=== PATIENT | female | born 1935 | race Hispanic/Latino ===

== ENCOUNTER 2017-05-31 09:21 | Outpatient (CLI) | payer MEDICARE ==
[2017-05-31 10:16] LABS: #Eosinphils 0.4 thou/uL (0.0-0.7); #Lymphocytes 1.6 thou/uL (1.20-3.40); #Monocytes 0.5 thou/uL (0.11-0.59); #Neutrophils 5.2 thou/uL (1.40-6.50); %Basophils 0.5 % (0.0-1.0); %Eosinophils 5.1 % (0.0-10.0); %Lymphocytes 20.2 % (21.0-51.0); %Monocytes 6.5 % (0.0-10.0); %Neutrophils 67.7 % (42.0-75.0); Mean Corpuscular HGB CONC 32.5 g/dL (32.0-36.0); Mean Corpuscular Hemoglobin 28.2 pg (27.0-31.0); Mean Corpuscular Volume 86.9 fl (81.0-99.0); Mean Platelet Volume 8.1 fL (7.4-10.4); Platelet Count 207 thou/uL (130-400); RBC Distribution Width 12.5 % (11.5-14.5); Red Blood Cell (RBC) Count 4.25 mill/uL (4.20-5.40); White Blood Cell (WBC) Count 7.7 thou/uL (4.8-10.8)
[2017-05-31 10:20] LABS: Bilirubin Negative (Negative); Blood, Urine Small (Negative); Clarity CLEAR (Clear); Glucose, Urine (Dipstick) 250 mg/dL (Negative); Leukocyte Small (Negative); Nitrite Negative (Negative); Protein, Urine (Dipstick) 300 mg/dL (Neg-Trace); Specific Gravity, Urine 1.017 (1.002-1.036); Urobilinogen 0.2 mg/dL (0.2-1.0)
[2017-05-31 10:22] LABS: Bacteria/HPF None Seen HPF (None Seen); Hyaline Casts/LPF 0-3 HYALINE CAST LPF (0-3 Hyaline); Pathc Cast-AUWi Flag 0.27 (0-2.49); Squamous Epithelial 0-3 HPF (0-3); WBC/HPF 0-3 HPF (0-3)
[2017-05-31 10:29] LABS: Prothrombin Time 12.8 SEC (12.0-14.7)
[2017-05-31 10:45] LABS: Anion Gap 13 mmol/L (10-20); BUN (Urea Nitrogen) 29 mg/dL (9.8-20.1); Calc. Creatinine Clearance 0 mL/min (70-130); Calcium 8.7 mg/dL (7.8-10.44); Carbon Dioxide 28 mmol/L (23-31); Chloride 102 mmol/L (98-107); Estimated GFR-MDRD 27; Glucose 186 mg/dL (83-110); Potassium 3.9 mmol/L (3.5-5.1); Sodium 139 mmol/L (136-145)
== END 2017-05-31 09:22 | disposition home or self-care (01) ==
LOC: LABBT 09:21
PROVIDERS: ATTEND Orthopaedic Surgery Hand Surgery
DX: Z01.812 Encounter for preprocedural laboratory examination (principal); G56.01 Carpal tunnel syndrome, right upper limb
CPT/HCPCS: 80048; 81001; 85025; 85610

== ENCOUNTER 2017-06-11 05:41 | Day surgery (SDC) | payer MEDICARE ==
[2017-05-31 10:01] VITALS: BMI 25.6
[2017-06-11] MEDS ORDERED: Propofol 500 MG/50 ML VIAL ONE (06:10)
[2017-06-11] MEDS ORDERED: Midazolam HCl 2 mg/2 ml Vial ONE (06:10)
[2017-06-11] MEDS ORDERED: Fentanyl 100 MCG/2 ML VIAL ONE (06:10)
[2017-06-11] MEDS ORDERED: Bupivacaine PF 0.5% 30 ML VIAL ONE (06:39)
[2017-06-11] MEDS ORDERED: Bacitracin Zinc Ointment 30 gm TUBE ONE (06:39)
[2017-06-11] MEDS ORDERED: Betamet Acet/Betamet Na Ph 30 MG/5 ML VIAL ONE (06:39)
[2017-06-11] MEDS ORDERED: CEFAZOLIN/Water 2 GM/20 ML SYRINGE ONE (06:45)
--- NOTE | 2017-06-11 10:29 | OP ---
DATE OF PROCEDURE: 06/11/2017 PREOPERATIVE DIAGNOSIS: Right carpal tunnel syndrome. POSTOPERATIVE DIAGNOSES: Right carpal tunnel syndrome with about 1.5 cm area of stippling valgus for mation of the median nerve in the center carpal canal and no tenosynovitis. She had marked thenar at [facility]. PROCEDURE: 1. Carpal tunnel release. 2. Injection of Celestone, 3 mL into the carpal canal and then proceed via drip technique. SURGEON: Dr. David Vidal INDICATION: The patient with atrophy lancinating pain which she describes as sleepiness which is not resolved with conservative treatment to include bracing and positive physical exam and electrodiagno stic testing. She has stage 3 Duque changes with severe atrophy. ANESTHESIA: Conscious sedation with a 12 mL 0.5% Marcaine block in the field of surgery. SPECIMEN: None. ESTIMATED BLOOD LOSS: Less than 5 mL. TOURNIQUET TIME: 14 minutes. DESCRIPTION OF PROCEDURE: After successful timeout was accomplished and prepping and draping, we the n outlined the incision and injected along this area with 12 mL 0.5% Marcaine. We waited 5 minutes f or this to take effect. Testing the patient it did not cause a problem so then we exsanguinated the limb and inflated the tourniquet to 250 mmHg pressure. We then made an incision outlined as far distal as Granados's cardinal line 4 proximal and 6 mm distal to the volar wrist flexion crease in line with the ring finger from medial to lateral. Carried this incision through skin, subcutaneous tissue, identified the center transcarpal ligament. From here, w ith self-retaining retractor and help of the assistant teacher, we were able to visualize the distal one half of the transverse carpal ligament, released it with a [place] blade in combination with tenotomy scis sors. We saw the motor branch was intact, had no separate compression. It was a type 1 takeoff. Then from here proximally using combination of [place] blade and tenotomy scissors to release the very thick transverse carpal ligament here where it was tightest all the way into the volar fascia of the forearm. We inspected the median nerve and saw the 1.5 cm stippling with hourglass formation in the middle portion of this area, no tenosynovitis was seen so no tenosynovectomy was needed. We placed 3 mL of Celestone along the nerve course in a drip technique, deflated tourniquet, hemostas is obtained. Closed the wound with interrupted 4-0 nylon simple pattern. The patient had a bulky dr essing applied was given another 6 mL 0.5% Marcaine. A subcutaneous block in the field of the proced ure and then left the operating room without evidence of anesthetic or operative complication.
[2017-06-11] MEDS ORDERED: ePHEDrine/0.9% NaCl/PF SYRINGE 50 mg/10 ml ONE (15:56)
[2017-06-11] MEDS ORDERED: Lidocaine 1% PF 5 ML VIAL ONE (15:56)
[2017-06-11] MEDS ORDERED: Propofol 200 MG/20 ML VIAL ONE (15:56)
== END 2017-06-11 09:48 | disposition home or self-care (01) ==
LOC: SDC 05:41
PROVIDERS: ATTEND Orthopaedic Surgery Hand Surgery
PROC: 01N50ZZ Release Median Nerve, Open Approach (ICD-10-PCS; principal; 2017-06-11)
DX: G56.01 Carpal tunnel syndrome, right upper limb (principal); I25.10 Atherosclerotic heart disease of native coronary artery without angina pectoris; Z88.5 Allergy status to narcotic agent; Z95.1 Presence of aortocoronary bypass graft; Z90.49 Acquired absence of other specified parts of digestive tract; Z90.710 Acquired absence of both cervix and uterus; Z98.42 Cataract extraction status, left eye; Z98.41 Cataract extraction status, right eye; Z96.1 Presence of intraocular lens
CPT/HCPCS: 36416; J0702; J2001; J2250; J2704; J3010; S0020

== ENCOUNTER 2017-11-25 02:14 | Observation (INO) | payer MEDICARE ==
[2017-11-25 02:52] LABS: #Eosinphils 0.6 thou/uL (0.0-0.7); #Lymphocytes 2.2 thou/uL (1.20-3.40); #Monocytes 0.7 thou/uL (0.11-0.59); #Neutrophils 4.9 thou/uL (1.40-6.50); %Basophils 0.4 % (0.0-1.0); %Eosinophils 6.7 % (0.0-10.0); %Lymphocytes 26.4 % (21.0-51.0); %Monocytes 8.7 % (0.0-10.0); %Neutrophils 57.9 % (42.0-75.0); Hemoglobin 12.1 g/dL (12.0-16.0); Mean Corpuscular HGB CONC 34.5 g/dL (32.0-36.0); Mean Corpuscular Hemoglobin 29.4 pg (27.0-31.0); Mean Corpuscular Volume 85.2 fL (78.0-98.0); Mean Platelet Volume 7.3 fL (7.4-10.4); Platelet Count 183 thou/uL (130-400); RBC Distribution Width 12.3 % (11.5-14.5); Red Blood Cell (RBC) Count 4.12 mill/uL (4.20-5.40); White Blood Cell (WBC) Count 8.4 thou/uL (4.8-10.8)
[2017-11-25 02:57] LABS: INR-International Normal Ratio 0.9; Prothrombin Time 11.9 SEC (12.0-14.7)
[2017-11-25 02:58] LABS: PTT 31.7 SEC (22.9-36.1)
[2017-11-25 03:08] LABS: ALT (SGPT) 11 U/L (8-55); AST (SGOT) 18 U/L (5-34); Alkaline Phosphatase 156 U/L (40-150); Anion Gap 13 mmol/L (10-20); BUN (Urea Nitrogen) 31 mg/dL (9.8-20.1); Bilirubin, Total 0.3 mg/dL (0.2-1.2); Calc. Creatinine Clearance 0 mL/min (70-130); Calcium 9.2 mg/dL (7.8-10.44); Carbon Dioxide 26 mmol/L (23-31); Chloride 104 mmol/L (98-107); Estimated GFR-MDRD 26; Glucose 70 mg/dL (83-110); Potassium 3.3 mmol/L (3.5-5.1); Sodium 140 mmol/L (136-145)
[2017-11-25 03:12] LABS: CKMB 2.5 ng/mL (0-6.6); Troponin I 0.015 ng/mL (< 0.028)
[2017-11-25] MEDS ORDERED: Nitroglycerin 2% Ointment 1 INCH/1 GM Packet ONE (03:42)
--- NOTE | 2017-11-25 03:57 | PDOC.FPRHP ---
- History of Present Illness History of Present Illness: Pt awoke at 0100 this morning with L sided parethesias and weakness. She had difficulty making it down the bellamy to the restroom. All of her symptoms have since resolved. She reports a history of TIAs. She denies any other symptoms including: chest pain, palpitations, changes in visions, headache, or focal weakness. Family members report she is at baseline mental state. ED Course: Upon presentation to the ER, symptoms had resolved. CT head, CBC, CMP, UA, and EKG were completed and WNL. - Allergies/Adverse Reactions Allergies Allergy/AdvReac Type Severity Reaction Status Date / Time codeine [Codeine] AdvReac Mild Verified 05/31/17 10:00 - Home Medications Medication Instructions Recorded Confirmed Type Esomeprazole Magnesium [NexIUM] 40 mg PO DAILY 07/16/15 11/25/17 History Ferrous Sulfate 325 mg PO QAM 07/16/15 11/25/17 History Losartan Potassium 100 mg PO HS 07/16/15 11/25/17 History Oxybutynin [Ditropan] 5 mg PO QAM 07/16/15 11/25/17 History Aspirin [Ecotrin Low Strength] 325 mg PO QAM 09/01/15 11/25/17 History Atorvastatin Calcium [Lipitor] 80 mg PO HS #30 tab 07/31/16 11/25/17 Rx Amlodipine [Norvasc] 10 mg PO DAILY 05/31/17 11/25/17 History Cyanocobalamin (Vitamin B-12) 1,000 mcg PO QAM 05/31/17 11/25/17 History [Vitamin B-12] Furosemide [Lasix] 20 mg PO QAM 05/31/17 11/25/17 History Insulin Glargine,Hum.Rec.Anlog 12 unit SQ HS 05/31/17 11/25/17 History [Lantus Solostar] - History PMHx:T2DM, CAD, CKD3, HTN PSHx: Quadruple bypass, hysterectomy FHx:none Social:none - Review of Systems General: denies: fever/chills, fatigue Eyes: denies: eye pain, vision changes Respiratory: denies: shortness of breath, exercise intolerance Cardiovascular: denies: chest pain, palpitation, edema Gastrointestinal: denies: diarrhea, constipation, abdominal pain Genitourinary: denies: incontinence, dysuria, polyuria Skin: denies: rashes, lesions Musculoskeletal: denies: pain, tenderness Neurological: reports: numbness (all symptoms have resolved), weakness. denies : syncope - Vital signs BP: [168/59] HR: [62] RR: [17] Tmax: [98.1] Pox: [100]% on [RA] Wt: [] - Physical Exam Constitutional: NAD, awake, alert and oriented HEENT: normocephalic and atraumatic, PERRLA Neck: trachea midline, no JVD Chest: no-tender to palpation, no lesions Heart: RRR, normal S1/S2, no murmurs/rubs/gallops, pulses present, no edema Lungs: CTAB, no respiratory distress, good air movement, no rales/rhonchi, no wheezing Abdomen: soft, non-tender, bowel sounds present Musculoskeletal: normal structure, normal tone, ROM grossly normal Neurological: no focal deficit, CN II-XII intact, normal sensation Skin: no rash/lesions, no jaundice Heme/Lymphatic: no unusual bruising or bleeding, no purpura, no petechia FMR H&P: Results - Labs Result Diagrams: 11/25/17 02:36 11/25/17 02:36 Lab results: WBC 8.4 thou/uL (4.8-10.8) 11/25/17 02:36 Hgb 12.1 g/dL (12.0-16.0) 11/25/17 02:36 Hct 35.1 % (36.0-47.0) L 11/25/17 02:36 MCV 85.2 fL (78.0-98.0) 11/25/17 02:36 Plt Count 183 thou/uL (130-400) 11/25/17 02:36 Neutrophils % 57.9 % (42.0-75.0) 11/25/17 02:36 Sodium 140 mmol/L (136-145) 11/25/17 02:36 Potassium 3.3 mmol/L (3.5-5.1) L 11/25/17 02:36 Chloride 104 mmol/L (98-107) 11/25/17 02:36 Carbon Dioxide 26 mmol/L (23-31) 11/25/17 02:36 BUN 31 mg/dL (9.8-20.1) H 11/25/17 02:36 Creatinine 1.87 mg/dL (0.6-1.1) H 11/25/17 02:36 Glucose 70 mg/dL (83-110) L 11/25/17 02:36 Calcium 9.2 mg/dL (7.8-10.44) 11/25/17 02:36 Total Bilirubin 0.3 mg/dL (0.2-1.2) 11/25/17 02:36 AST 18 U/L (5-34) 11/25/17 02:36 ALT 11 U/L (8-55) 11/25/17 02:36 Alkaline Phosphatase 156 U/L (40-150) H 11/25/17 02:36 CK-MB (CK-2) 2.5 ng/mL (0-6.6) 11/25/17 02:36 Serum Total Protein 7.0 g/dL (6.0-8.3) 11/25/17 02:36 Albumin 4.0 g/dL (3.4-4.8) 11/25/17 02:36 FMR H&P: A/P - Problem List (1) TIA (transient ischemic attack) Current Visit: Yes Status: Acute (2) Hypokalemia Current Visit: Yes Status: Acute Code(s): E87.6 - HYPOKALEMIA (3) Chronic kidney disease (CKD) Current Visit: Yes Status: Chronic Code(s): N18.9 - CHRONIC KIDNEY DISEASE, UNSPECIFIED Qualifiers: Chronic kidney disease stage: stage 3 (moderate) Qualified Code(s): N18.3 - Chronic kidney disease, stage 3 (moderate) (4) DM2 (diabetes mellitus, type 2) Current Visit: Yes Status: Chronic Qualifiers: Diabetes mellitus terminal gauger insulin use: without terminal gauger use Diabetes mellitus complication status: with hyperglycemia Qualified Code(s): E11.65 - Type 2 diabetes mellitus with hyperglycemia - Plan 1. Possible TIA - CT, EKG, Coag WNL - will order carotid doppler, no CTA due to chronic kidney disease - Stroke team consult - Neurology consult - Monitor in telemetry observation 2. Hypokalemia - potassium mildly low at 3.3 - will oral supplement and continue to monitor 3. HUEY on CKD - IVF on at a low rate - continue to monitor lab values 3. DMII - hypoglycemic on admission - administer mild sliding scale insulin and monitor FMR H&P: Upper Level - Pertinent history 82 y/o F w/ PMHx of CAD, hx of TIA, HTN, and IDDM presents for evaluation of left sided numbness and tingling that she first noticed when she woke up around 0130 this AM. Last normal prior to going to bed around 2230 last night. Pt states she got up to use the restroom and noticed the aforementioned sxs. Numbness and tingling from left hip downward and from left elbow down into hand. However, pt reports that her sxs have completely resolved at time of interview. Sxs are not similar to her prior episodes of TIA in the past. - Pertinent findings BP 168/59 HR 62 RR 17 O2 sat 100% RA Temp 98.1 CT Brain WO NAD PE: GEN: NAD, resting comfortably PULM: CTA-B/l, no wheezes or rales CARD: RRR, no mumur or gallops GI: Soft, non-ttp, BSx4 NEURO: CN 2-12 intact b/l, 5/5 strength throughout, no focal deficits. Sensory exam intact UE and LE b/l - Plan Date/Time: 11/25/17 0354 I, B. Sarthak Neumann MD, have evaluated this patient and agree with findings/plan as outlined by planning intern resident. Pertinent changes/additions are listed here. 82 y/o F w/: 1. Transient Ischemic Attack - No evidence of hemorrhage on CT non-con - Unable to obtain CTA in ER 2/2 renal function w/ GFR of 26. Will obtain carotid U/S - Admit Stroke/Obs - Allow permissive HTN for 24 hrs (<220/120) - Will obtain ECHO to further eval cardiac etiologies - Cont. w/ high intensity statin once taking PO - NPO pending clearance by speech to prevent possible aspiration - Consult Neuro in AM for further eval - Cont. w/ ASA - Consult PT/OT for eval 2. HUEY on CKD 3 - Baseline GFR around 35 per clinic records - Will give gentle IVF and repeat BMP to monitor for resolution 3. Hypokalemia - Will replace w/ 40 mEq PO 4. Elevated Alk Phos - Likely insignificant and due to statistical variation w/ mild elevation noted - No concern for primary biliary cirrhosis at this time w/ normal values seen on prior visits and in clinic. - Pt will need a repeat CMP to eval 2/2 being <1.5x ULN in 1-3 months 5. IDDM - Recent A1C 8.8 from 07/21 - Cont. w/ home insulin regimen - AC/HS accuchecks - Diabetic/HH diet once cleared by speech for PO intake 6. HTN - Hold home BP meds to allow for permissive HTN (<220/120) for 24 hours - Will plan to restart once this time frame has 7. CKD3 - Baseline GFR at 35 from clinic records 8. CAD - Cont. w/ statin and ASA 9. GERD - Will restart home PPI once taking PO CODE STATUS: FULL CODE LOS <2 midnights Attending Addendum - Attending Addendum Date/Time: 11/25/17 1158 I personally evaluated the patient and discussed the management with Dr. Garcia I agree with the History, Examination, Assessment and Plan documented above with any addition or exceptions noted below.82 yo female with DM,HTN,CAD s/p CABG and CKD stage 3 with acute onset numbness and weakness to LLE last pm with spontaneous resolution. Patient s/p TIA in the past patient evaluated with head CT Negative for bleed and carotid duplex scanning today. Patient needs to continue ASA, maximize BP control terminal gauger, maximize diabetescontrol and continue statin therapy. Do not feel patient will benefit from MRI f/u with Dr Herrera outpatient and PCP [facility] Physician for further outpatient care if continues stable today with HH evaluation.
[2017-11-25] MEDS ORDERED: Ondansetron HCl/PF 4 MG/2 ML Vial IVP PRN (04:40)
[2017-11-25] MEDS ORDERED: Acetaminophen 325 MG TAB PO PRN ×2 (04:40→04:46)
[2017-11-25] MEDS ORDERED: Sodium Chloride 0.9% 1,000 ML IV SCH (04:40)
[2017-11-25] MEDS ORDERED: Ondansetron ODT 4 MG TAB SL PRN (04:40)
[2017-11-25] MEDS ORDERED: Ondansetron ODT 4 MG TAB PO PRN (04:46)
[2017-11-25] MEDS ORDERED: Dextrose 5% in Water 1,000 ML IV PRN (04:46)
[2017-11-25] MEDS ORDERED: Dextrose 50% Abboject 50 ML SYRINGE SLOW IVP PRN (04:46)
[2017-11-25] MEDS ORDERED: HumaLOG 300 UNITS/3 ML VIAL SC PRN (04:46)
[2017-11-25] MEDS ORDERED: Potassium Chloride 20 MEQ TAB PO SCH (04:46)
[2017-11-25 05:00] VITALS: BMI 25.7
[2017-11-25] MEDS: Lactated Ringer's 1,000 ML IV SCH ×2 (05:19→13:32)
[2017-11-25] MEDS ORDERED: Oxybutynin 5 MG TAB PO SCH (09:00)
[2017-11-25] MEDS ORDERED: Aspirin 325 MG TAB PO SCH ×2 (09:00)
--- NOTE | 2017-11-25 09:57 | CT ---
PRELIMINARY REPORT/[facility]/EMERGENTY AFTER-HOURS PROCEDURE Addendum created by Boris Miles MD on 11/25/2017 2:35 AM Central Time ([place] & [place]) THIS REPORT CONTAINS FINDINGS THAT MAY BE CRITICAL TO PATIENT CARE. The findings were verbally communicated via t elephone conference with SANJEEV KOEHLER at 2:35 AM CDT on 11/25/2017. The findings were acknowledged and u nderstood. Initial Report created on 11/25/2017 2:33 AM Central Time ([place] & [place]) CT Head Without Intravenous Contrast EXAM DATE/TIME: 11/25/2017 2:22 AM CLINICAL HISTORY: 82 years old, female; Signs and symptoms; Numbness / parasthesia and weakness, extremity; Left; Patie nt HX: Lt sided weakness/ arm /leg /face TECHNIQUE: Axial computed tomography images of the head/brain without intravenous contrast. COMPARISON: No relevant prior studies available. FINDINGS: Brain: No evidence of acute large vessel infarction. No evidence of acute intracranial hemorrhage, ex traxial fluid or midline shift. Mild low density changes within the white matter bilaterally. Cerebel lum atrophic; otherwise, posterior fossa structures within normal limits. Ventricles: Mild prominence of the cerebral sulci and ventricles. Bones/joints: Normal. No acute fracture. Sinuses: Normal as visualized. No acute sinusitis. Mastoid air cells: Normal as visualized. No mastoid effusion. Soft tissues: Normal. IMPRESSION: 1. No evidence of acute large vessel infarction. 2. No evidence of acute intracranial hemorrhage, extraxial fluid or midline shift. 3. Mild cerebral atrophy. 4. 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 Thank you for allowing us to participate in the care of your patient. Dictated and Authenticated by: Boris Miles MD 11/25/2017 2:33 AM Central Time ([place] & [place]) FINAL REPORT CT BRAIN WITHOUT CONTRAST: HISTORY: Altered mental status. Numbness and tingling and paresthesias. COMPARISON: CT brain of 07/28/16. FINDINGS: Findings and impression are concordant with the preliminary report. POS: [facility]
--- NOTE | 2017-11-25 11:44 | ULT ---
CAROTID DUPLEX ULTRASOUND: Indication: History of TIA. Comparison: 07-16-15 FINDINGS: There is partially calcified atherosclerotic plaque involving the carotid bulbs, proximal internal ca rotid arteries, and external carotid arteries bilaterally. The left carotid artery is tortuous. Peak systolic velocity in the right CCA is 83.6 cm/sec and in the left CCA 78.1 cm/sec. Peak systolic velocity in the right ICA is 82.3 cm/sec and in the left ICA is 109.9 cm/sec. Peak systolic velocity in the right ICA is 135.1 cm/sec and in the left 156.3 cm/sec. Right ICA/CCA ratio is 0.98 and the left is 1.41. Antegrade flow is seen in both vertebral arteries. IMPRESSION: 1. No hemodynamically significant stenosis involving the internal carotid arteries. 2. Moderate narrowing involving the proximal left ECA appears to have worsened from the comparison of 2016. POS: [facility]
[2017-11-25 11:50] VITALS: TEMP 98.1
[2017-11-25 12:30] VITALS: BP 166/78
[2017-11-25] MEDS ORDERED: Atorvastatin Calcium 40 MG TAB PO SCH (21:00)
[2017-11-25] MEDS ORDERED: Insulin Glargine 14 UNITS in Pre-Filled Syringe 1 EACH SC SCH (21:00)
--- NOTE | 2017-11-30 13:48 | EKG ---
Test Reason : WEAKNESS Blood Pressure : / mmHG Vent. Rate : 063 BPM Atrial Rate : 063 BPM P-R Int : 154 ms QRS Dur : 090 ms QT Int : 404 ms P-R-T Axes : 050 002 093 degrees QTc Int : 413 ms Normal sinus rhythm Nonspecific T wave abnormality Abnormal ECG Confirmed by VANDANA SUTHERLAND MD ([id number]), health editor MEETA BAEZ ([id number]) on 11/30/2017 1:48:19 PM Referred By: ENA Confirmed By:VANDANA SUTHERLAND MD
== END 2017-11-25 14:02 | disposition home or self-care (01) ==
LOC: ERS 02:14 → 2NO 03:37
PROVIDERS: ADMIT Student in an Organized Health Care Education/Training Program; ATTEND Student in an Organized Health Care Education/Training Program
DX: G45.9 Transient cerebral ischemic attack, unspecified (principal); E11.22 Type 2 diabetes mellitus with diabetic chronic kidney disease; I12.9 Hypertensive chronic kidney disease with stage 1 through stage 4 chronic kidney disease, or unspecified chronic kidney disease; N18.3 Chronic kidney disease, stage 3 (moderate); I25.10 Atherosclerotic heart disease of native coronary artery without angina pectoris; E87.6 Hypokalemia; K21.9 Gastro-esophageal reflux disease without esophagitis; Z79.82 Long term (current) use of aspirin; Z79.4 Long term (current) use of insulin; Z79.899 Other long term (current) drug therapy; Z88.5 Allergy status to narcotic agent
CPT/HCPCS: 70450; 80053; 82553; 82962; 83735; 84484; 85025; 85610; 85730; 93005; 93306; 93880; 97116; 97139 ×3; 99285; G0378; G8978; G8979; G8980; G8987; G8988; G8989; 36416

== ENCOUNTER 2018-03-11 20:23 | Emergency (ER) | payer MEDICARE ==
[2018-03-11 21:52] LABS: Anion Gap 14 mmol/L (10-20); BUN (Urea Nitrogen) 31 mg/dL (9.8-20.1); Calc. Creatinine Clearance 0 mL/min (70-130); Calcium 8.8 mg/dL (7.8-10.44); Carbon Dioxide 25 mmol/L (23-31); Chloride 100 mmol/L (98-107); Estimated GFR-MDRD 24; Glucose 182 mg/dL (83-110); Magnesium 1.6 mg/dL (1.6-2.6); Sodium 135 mmol/L (136-145)
== END 2018-03-11 22:11 | disposition home or self-care (01) ==
LOC: ERS 20:23
DX: R20.2 Paresthesia of skin (principal); E11.9 Type 2 diabetes mellitus without complications; I10 Essential (primary) hypertension; Z86.73 Personal history of transient ischemic attack (TIA), and cerebral infarction without residual deficits
CPT/HCPCS: 36416; 80048; 83735; 99283

== ENCOUNTER 2018-10-12 01:04 | Emergency (ER) | payer MEDICARE, MEDICAID ==
--- NOTE | 2018-10-12 07:56 | ULT ---
PRELIMINARY REPORT/[facility]/EMERGENCY AFTER HOURS PROCEDURE: EXAM: US Duplex Bilateral Lower Extremity Veins EXAM DATE/TIME: 10/12/2018 1:57 AM CLINICAL HISTORY: 83 years old, female; Other: Ble swelling, lt leg pain from the knee down TECHNIQUE: Imaging protocol: Real-time duplex ultrasound of the Bilateral Lower Extremities with 2-D piedra scale, color Doppler flow and spectral waveform analysis. Complete exam focused on the bilateral lower extremity veins. COMPARISON: No relevant prior studies available. FINDINGS: Evaluated veins include bilateral common femoral, profunda femoral, proximal/mid/distal superficial femoral, popliteal, posterior tibial, anterior tibial, and greater saphenous veins. Right leg: No visible clot in the included veins. The included veins appear normally compressible. Duplex Doppler evaluation demonstrates flow in the evaluated veins. Left leg: No visible clot in the included veins. The included veins appear normally compressible. Duplex Doppler evaluation demonstrates flow in the evaluated veins. Technologist notes the lack of arterial flow in the proximal left posterior tibial artery. IMPRESSION: 1. No evidence of acute right lower extremity DVT. 2. No evidence of acute left lower extremity DVT. 3. Technologist notes the lack of arterial flow in the proximal left posterior tibial artery. Thank you for allowing us to participate in the care of your patient. Dictated and Authenticated by: Bhanu Hernandez MD 10/12/2018 4:12 AM Central Time ([place] & [place]) FINAL REPORT US Venous Doppler Bilat History: [Lower extremity edema] Comparison: None. Findings/Impression: Real-time grayscale, color, and spectral analysis of the bilateral lower extremi ty venous systems performed. Findings and impression are concordant with the preliminary report. Transcribed Date/Time: 10/12/2018 8:13 AM
== END 2018-10-12 03:41 | disposition home or self-care (01) ==
LOC: ERS 01:04
DX: E11.51 Type 2 diabetes mellitus with diabetic peripheral angiopathy without gangrene (principal); I10 Essential (primary) hypertension; Z86.73 Personal history of transient ischemic attack (TIA), and cerebral infarction without residual deficits; Z79.899 Other long term (current) drug therapy; Z79.4 Long term (current) use of insulin
CPT/HCPCS: 93970

== ENCOUNTER 2018-11-09 08:52 | Emergency (ER) | payer MEDICARE, MEDICAID ==
[2018-11-09] MEDS ORDERED: Acetaminophen 325 MG TAB ONE (10:44)
[2018-11-09] MEDS ORDERED: tiZANidine HCl 4 MG TAB PO SCH (11:00)
== END 2018-11-09 13:20 | disposition home or self-care (01) ==
LOC: ERS 08:52
DX: M54.2 Cervicalgia (principal); E11.9 Type 2 diabetes mellitus without complications; I10 Essential (primary) hypertension; Z86.73 Personal history of transient ischemic attack (TIA), and cerebral infarction without residual deficits; Z79.899 Other long term (current) drug therapy; Z79.82 Long term (current) use of aspirin; Z79.4 Long term (current) use of insulin
CPT/HCPCS: 99283

== ENCOUNTER 2019-03-15 09:43 | Observation (INO) | payer MEDICARE, MEDICAID ==
[2019-03-15 10:16] LABS: #Eosinphils 0.3 thou/uL (0.0-0.7); #Lymphocytes 1.7 thou/uL (1.20-3.40); #Monocytes 0.5 thou/uL (0.11-0.59); #Neutrophils 5.4 thou/uL (1.40-6.50); %Basophils 0.6 % (0.0-1.0); %Eosinophils 4.2 % (0.0-10.0); %Monocytes 6.8 % (0.0-10.0); %Neutrophils 67.4 % (42.0-75.0); Hemoglobin 12.2 g/dL (12.0-16.0); Mean Corpuscular HGB CONC 33.2 g/dL (32.0-36.0); Mean Corpuscular Hemoglobin 28.4 pg (27.0-31.0); Mean Corpuscular Volume 85.6 fL (78.0-98.0); Mean Platelet Volume 7.6 fL (7.4-10.4); Platelet Count 220 thou/uL (130-400); RBC Distribution Width 12.7 % (11.5-14.5)
[2019-03-15] MEDS ORDERED: Labetalol HCl 100 MG/20 ML VIAL ONE (10:19)
[2019-03-15 10:26] LABS: ALT (SGPT) 8 U/L (8-55); AST (SGOT) 15 U/L (5-34); Albumin 3.3 g/dL (3.4-4.8); Alkaline Phosphatase 113 U/L (40-110); Anion Gap 14 mmol/L (10-20); BUN (Urea Nitrogen) 28 mg/dL (9.8-20.1); Bilirubin, Total 0.3 mg/dL (0.2-1.2); Calc. Creatinine Clearance 0 mL/min (70-130); Calcium 8.3 mg/dL (7.8-10.44); Carbon Dioxide 25 mmol/L (23-31); Chloride 105 mmol/L (98-107); Estimated GFR-MDRD 21; Globulin 2.8 g/dL (2.4-3.5); Glucose 115 mg/dL (83-110); Potassium 3.8 mmol/L (3.5-5.1); Protein, Total 6.1 g/dL (6.0-8.3); Sodium 140 mmol/L (136-145)
--- NOTE | 2019-03-15 10:31 | CT ---
CT BRAIN NONCONTRAST: DATE: 03/15/2019 HISTORY: 83-year-old female with right upper extremity hypesthesia and paresthesia, and right lower extremity weakness. Dr. Dover verbally gave this stroke alert protocol report by telephone to Dr. Ramirez of the emergency [place] [facility] at 10:26 AM on 03/15/2019 FINDINGS: There is no evidence of acute intra-axial or extra-axial hemorrhage. There is no midline shift or any other mass effect. There is no extra-axial fluid collection. There is no evidence of obstructive hydrocephalus. Calvarium is intact. Small old lacunar infarction at anterolateral aspect of right bas al ganglia/caudate head/internal-external capsule junction. 75% partial opacification of right sphenoid air cell with soft tissue density material plus hyperdense material suggestive of chronic fu ngal colonization. Osseous mural thickening of hogan of right sphenoid air cell indicating long-standing, chronic process. No interval change overall compared to 11/25/2017. IMPRESSION: 1. No acute intracranial findings. 2. 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 3. Chronic right sphenoid sinusitis.
[2019-03-15 10:47] LABS: INR-International Normal Ratio 0.9; PTT 33.3 SEC (22.9-36.1); Prothrombin Time 12.2 SEC (12.0-14.7)
--- NOTE | 2019-03-15 11:31 | PDOC.FPRHP ---
- History of Present Illness Chief Complaint: r arm tingling, r leg weakness History of Present Illness: 83-year-old female with a past medical history of CAD, Diabetes, CKD, hypertension, and TIA presents to the emergency department with right arm tingling and right lower extremity weakness that started yesterday at noon. Patient denies any dizziness, blurred vision, or slurred speech. Patient denies any chest pain or headache. Patient denies any confusion. Patient admits to a dry cough but she thinks its allergies as shes been using cough syrup. Patient denies any falls. ER COURSE: CT head was negative. Blood pressure was 200s/100s. Patient was given labetalol. Admitted for TIA, CVA r/o - Allergies/Adverse Reactions Allergies Allergy/AdvReac Type Severity Reaction Status Date / Time Sulfa (Sulfonamide Allergy Verified 03/15/19 15:24 Antibiotics) codeine [Codeine] AdvReac Mild Verified 05/31/17 10:00 - Home Medications Medication Instructions Recorded Confirmed Type Esomeprazole Magnesium [NexIUM] 40 mg PO DAILY 07/16/15 03/15/19 History Ferrous Sulfate 325 mg PO QAM 07/16/15 03/15/19 History Losartan Potassium 100 mg PO DAILY 07/16/15 03/15/19 History Oxybutynin [Ditropan] 5 mg PO DAILY 07/16/15 03/15/19 History Aspirin [Ecotrin Low Strength] 325 mg PO QAM 09/01/15 03/15/19 History Atorvastatin Calcium [Lipitor] 80 mg PO HS #30 tab 07/31/16 03/15/19 Rx Amlodipine [Norvasc] 10 mg PO DAILY 05/31/17 03/15/19 History Furosemide [Lasix] 20 mg PO DAILY 05/31/17 03/15/19 History Insulin Glargine,Hum.Rec.Anlog 12 unit SQ HS 05/31/17 03/15/19 History [Lantus Solostar] Insulin Lispro [Humalog Kwikpen 4 units SC ASDIR 03/15/19 03/15/19 History U-100] Loratadine [Allergy Relief] 10 mg PO DAILY 03/15/19 03/15/19 History Metoprolol Succinate 12.5 mg PO DAILY 03/15/19 03/15/19 History PARoxetine HCl [Paroxetine HCl] 10 mg PO HS 03/15/19 03/15/19 History tiZANidine HCl [Tizanidine HCl] 2 mg PO Q8HR PRN 03/15/19 03/15/19 History - History PMHx: Prior TIA, CKD, HTN, Insulin dependent DM II, CAD PSHx: X4 vessel CABG, r hand sx, hysterectomy @ 43 FHx: father: CVA caused , Mother: CHF caused , brother CVA Social: denies tobacco, etoh or drug use. - Review of Systems General: denies: fever/chills, night sweats Eyes: denies: eye pain, vision changes ENT: reports: nasal congestion Respiratory: reports: cough, congestion. denies: shortness of breath Cardiovascular: denies: chest pain, palpitation, edema Gastrointestinal: denies: nausea, vomiting, diarrhea Genitourinary: denies: incontinence Skin: denies: rashes Musculoskeletal: denies: pain Neurological: reports: numbness (tingling, see HPI), weakness (R leg, see hpi.) . denies: seizure Psychological: reports: anxiety - Vital signs BP: 170/111 HR: 60 RR: 16 Tmax: 97.9 Pox: 98% on RA Wt: 57.8 kg - Physical Exam Constitutional: NAD, awake, alert and oriented, well developed HEENT: normocephalic and atraumatic, PERRLA, EOMI, conjunctiva clear, no scleral icterus, grossly normal vision, grossly normal hearing, MMM, oropharynx clear Neck: supple, FROM, trachea midline Heart: RRR, pulses present -Heart: sys murmur 2/6 Lungs: CTAB, no respiratory distress, good air movement, no rales/rhonchi, no wheezing, no retractions Abdomen: soft, non-tender, bowel sounds present, no masses/distention, no hernias Musculoskeletal: normal structure, normal tone, ROM grossly normal -Musculoskeletal: strength 4/5 in all extremities. Neurological: no focal deficit, CN II-XII intact -Neurological: decreased sensation to RUE. Skin: no rash/lesions, good turgor, capillary refill <2 seconds, no jaundice Heme/Lymphatic: no unusual bruising or bleeding, no purpura, no petechia Psychiatric: normal mood and affect, good judgment and insight, intact recent and remote memory FMR H&P: Results - Labs Result Diagrams: 03/15/19 09:59 03/15/19 09:59 Lab results: WBC 8.0 thou/uL (4.8-10.8) 03/15/19 09:59 Hgb 12.2 g/dL (12.0-16.0) 03/15/19 09:59 Hct 36.8 % (36.0-47.0) 03/15/19 09:59 MCV 85.6 fL (78.0-98.0) 03/15/19 09:59 Plt Count 220 thou/uL (130-400) 03/15/19 09:59 Neutrophils % 67.4 % (42.0-75.0) 03/15/19 09:59 Sodium 140 mmol/L (136-145) 03/15/19 09:59 Potassium 3.8 mmol/L (3.5-5.1) 03/15/19 09:59 Chloride 105 mmol/L (98-107) 03/15/19 09:59 Carbon Dioxide 25 mmol/L (23-31) 03/15/19 09:59 BUN 28 mg/dL (9.8-20.1) H 03/15/19 09:59 Creatinine 2.23 mg/dL (0.6-1.1) H 03/15/19 09:59 Glucose 115 mg/dL (83-110) H 03/15/19 09:59 Calcium 8.3 mg/dL (7.8-10.44) 03/15/19 09:59 Total Bilirubin 0.3 mg/dL (0.2-1.2) 03/15/19 09:59 AST 15 U/L (5-34) 03/15/19 09:59 ALT 8 U/L (8-55) 03/15/19 09:59 Alkaline Phosphatase 113 U/L (40-110) H 03/15/19 09:59 Serum Total Protein 6.1 g/dL (6.0-8.3) 03/15/19 09:59 Albumin 3.3 g/dL (3.4-4.8) L 03/15/19 09:59 - Radiology Interpretation CT scan - head Status: report reviewed by me (no acute intracranial lesion, small old lacunar infarct.) FMR H&P: A/P - Problem List (1) TIA (transient ischemic attack) Current Visit: Yes Status: Acute (2) Chronic kidney disease (CKD) Current Visit: Yes Status: Chronic Code(s): N18.9 - CHRONIC KIDNEY DISEASE, UNSPECIFIED Qualifiers: Chronic kidney disease stage: stage 3 (moderate) Qualified Code(s): N18.3 - Chronic kidney disease, stage 3 (moderate) (3) Coronary artery disease Current Visit: Yes Status: Chronic Code(s): I25.10 - ATHSCL HEART DISEASE OF [place] CORONARY ARTERY W/O ANG PCTRS Qualifiers: Coronary Disease-Associated Artery/Lesion type: bypass graft [place] vs. transplanted heart: [facility] heart Associated angina: without angina Qualified Code(s): I25.810 - Atherosclerosis of coronary artery bypass graft(s) without angina pectoris (4) DM2 (diabetes mellitus, type 2) Current Visit: Yes Status: Chronic Qualifiers: Diabetes mellitus senior care insulin use: without emt intermediate use Diabetes mellitus complication status: with hyperglycemia Qualified Code(s): E11.65 - Type 2 diabetes mellitus with hyperglycemia (5) Hypertension Current Visit: Yes Status: Chronic Code(s): I10 - ESSENTIAL (PRIMARY) HYPERTENSION Qualifiers: Hypertension type: essential hypertension Qualified Code(s): I10 - Essential (primary) hypertension - Plan 83 y/o F admitted to obs stroke for a TIA rule out. 1. TIA, CVA rule out - RUE paresthesia, RLE subjective weakness. 4/5 strength in all extremities. - CT head neg - MRI brain ordered - TTE, carotid doppler ordered - CTA head and neck deferred due to GFR 21, and Cr .2.3 2. HTN - Allowing for permissive HTN 220/110 - Will use hydralazine if >220/110 BP to bring down slightly. - Holding all BP medications at this time - Will resume in 48 hours 3. CKD Stage 4 - Cr 2.3 - GFR 21 - Will continue to monitor. 4. Hx of DM II, insulin dependent - Continue home lantus dose 12-14 units nightly. - QACHS accuchecks. - Mild SSI, and bedtime sliding scale 5. Hx of CAD - S/P X4 vessel CABG in 2007 - continue furosemide and atorvastatin 6. Hx of anxiety - Continue home paroxetine dose at 10 mg QHS Code Statue: Full code. Pt wants adult children to be medical decision makers if unable to make decision for herself. Diet: HH, CC DVT ppx: Heparin Dispo: stable, admitted to stroke obs for TIA/CVA rule out. MRI brain pending. FMR H&P: Upper Level - Pertinent history 83 yo female seen due to right arm and leg weakness for one day. Reports symptoms began around noon yesterday with decreases sensation of right hand and "dragging" right foot. Son reports increased anxiety symptoms, but significant TIA history. ED ordered CT that showed multiple old infarcts. Please see mechanical intern note above for further information. Physical Exam: General: NAD, appears stated age HEENT: moist mucous membranes, PERRLA, poor dentition CV: RRR, no bruits Respiratory: CTA-no wheezing Abdomen: Soft, nontender, no masses Extremities: moves all four equally Neuro: Decreased sensation to right upper and lower extremities. 4+ strength bilaterally Psych: A&Ox3, normal affect - Plan Date/Time: 03/15/19 0067 I, Daniel Miller MD, have evaluated this patient and agree with findings/ plan as outlined by mechanical intern resident. Pertinent changes/additions are listed here. 1. TIA vs. HTN urgency CVA rule out - Out of fibrinolytics window - Neuro checks q4h - CT head negative for acute pathology, but shows old infarcts - MRI brain ordered - carotid doppler ordered along with ECHO for risk stratification 2. HTN - Allowing for permissive HTN 220/110 for 24 hours - PRNs if needed - Hold home BP meds 3. CKD Stage 4 - Cr 2.3 which appears to be near baseline 4. CAD - Hx of CABG - Likely PAD as well - Continue home medications CODE STATUS: FULL CODE PCP: ETHEL Hendrix Disposition: Stable, will admit to observation and await results. Addendum - Attending - Attending Attestation Date/Time: 03/15/19 7030 I personally evaluated the patient and discussed the management with Dr. Silva. I agree with the History, Examination, Assessment and Plan documented above with any addition or exceptions noted below. The patient presents with right arm tingling and right lower extremity weakness. On exam, pt has 4/5 strength throughout. Will get MRI, echo and carotid doppler. Will get Pt/ot eval
[2019-03-15] MEDS ORDERED: Aspirin Chewable 81 MG TAB ONE (11:33)
[2019-03-15] MEDS ORDERED: Nitroglycerin 2% Ointment 1 INCH/1 GM Packet ONE (11:33)
[2019-03-15] MEDS ORDERED: Acetaminophen 500 MG TAB ONE (12:30)
[2019-03-15] MEDS ORDERED: Acetaminophen 325 MG TAB PO PRN (13:12)
[2019-03-15 13:56] VITALS: BMI 25.7
[2019-03-15 14:40] LABS: Magnesium 1.7 mg/dL (1.6-2.6); Phosphorus 4.1 mg/dL (2.3-4.7)
[2019-03-15] MEDS ORDERED: Dextrose 5% in Water 1,000 ML IV PRN (15:24)
[2019-03-15] MEDS ORDERED: Dextrose 50% Abboject 50 ML SYRINGE SLOW IVP PRN (15:24)
[2019-03-15] MEDS ORDERED: HumaLOG 300 UNITS/3 ML VIAL SC PRN (15:24)
--- NOTE | 2019-03-15 16:32 | MRI ---
MRI BRAIN NONCONTRAST: DATE: 03/15/2019 HISTORY: 83-year-old female with TIA. Right upper extremity hypesthesia and paresthesia. COMPARISON: 07/29/2016. FINDINGS: There is no obstructive hydrocephalus. There is no midline shift or any other evidence of mass effect . There is no extra-axial fluid collection. There are chronic ischemic white matter changes due to microvascular atherosclerosis. Because the FLAIR images are degraded by patient motion, it is difficu lt to estimate the degree of such chronic ischemic white matter changes. There is a small old lacunar infarction at the junction between the right caudate head and adjacent portions of right basa l ganglia, right external capsule, and anterior limb of right internal capsule. There is a small hemosiderin stain associated with this. There is otherwise no major intra-axial signal abnormality, r ecent hemorrhage, or restricted diffusion. There is no interval change overall. Signal abnormality involving much of the volume of the right sphenoid air cell. IMPRESSION: 1) mild-moderate chronic ischemic white matter changes. 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 3) no acute findings.
--- NOTE | 2019-03-15 19:13 | ULT ---
BILATERAL CAROTID DUPLEX ULTRASOUND: HISTORY: TIA TECHNIQUE: Grayscale, color-flow and spectral Doppler ultrasound imaging of the extracranial carotid artery syst ems was performed bilaterally. FINDINGS: There is calcified atherosclerotic plaque seen in the region of the carotid bulbs and proximal [employer] al carotid arteries bilaterally. There is no hemodynamically significant stenosis in the bilateral internal carotid arteries according to the peak systolic velocities and the ICA/CCA ratios. The peak systolic velocity in the right ICA measures 62.6 cm/s. The peak systolic velocity in the left ICA measures 71.5 cm/s. The right IC A/CCA ratio is 1.07, and the left ICA/CCA ratio is 1.28. Vertebral arteries: Antegrade flow is demonstrated in the vertebral arteries bilaterally. IMPRESSION: No hemodynamically significant stenosis in the bilateral internal carotid arteries.
[2019-03-15] MEDS ORDERED: tiZANidine HCl 4 MG TAB PO PRN (21:00)
[2019-03-15] MEDS ORDERED: FLU VACC TS2019-20(65YR UP)/PF 180 MCG/0.5 ML SYRINGE IM ONE (21:00)
[2019-03-15] MEDS: Atorvastatin Calcium 40 MG TAB PO SCH (22:00)
[2019-03-15] MEDS: Heparin 5,000 UNITS/ML VIAL SC SCH (22:00)
[2019-03-15] MEDS: Insulin Glargine 12 UNITS in Pre-Filled Syringe 1 EACH SC SCH (22:00)
[2019-03-16 05:21] LABS: Anion Gap 10 mmol/L (10-20); BUN (Urea Nitrogen) 24 mg/dL (9.8-20.1); Calc. Creatinine Clearance 19 mL/min (70-130); Calcium 8.1 mg/dL (7.8-10.44); Carbon Dioxide 27 mmol/L (23-31); Cardiac Risk 3.2 (Less than 4.5); Chloride 107 mmol/L (98-107); Cholesterol 172 mg/dl (< 200 Desired); Estimated GFR-MDRD 23; HDL Cholesterol 54 mg/dL (>60 Neg Risk); LDL Cholesterol, Calculated 100 mg/dL; Potassium 3.3 mmol/L (3.5-5.1); Sodium 141 mmol/L (136-145); Triglycerides 92 mg/dL (Less than 150)
[2019-03-16 05:23] LABS: Glucose 50 mg/dL (83-110)
--- NOTE | 2019-03-16 06:53 | PDOC.FM ---
- Subjective Subjective: Mrs. Lewis was resting comfortably in her hospital bed and finishing her breakfast. She denied any acute overnight events but stated that she continued to have parasthesias in her LUE. - Objective Vital Signs & Weight: Vital Signs (12 hours) Temp Pulse Resp BP Pulse Ox 03/16/19 03:53 98 F 61 16 177/80 H 98 03/16/19 00:00 99.1 F 69 16 192/77 H 93 L 03/15/19 19:49 98 F 62 16 189/77 H 96 Weight Weight 57.878 kg I&O: 03/14/19 03/15/19 03/16/19 06:59 06:59 06:59 Intake Total 728 Balance 728 Result Diagrams: 03/15/19 09:59 03/16/19 04:44 Phys Exam - Physical Examination Constitutional: NAD HEENT: PERRLA, moist MMs, sclera anicteric, oral pharynx no lesions Neck: supple, full ROM Respiratory: no wheezing, no rales, no rhonchi, clear to auscultation bilateral Cardiovascular: RRR, no significant murmur, no rub Gastrointestinal: soft, non-tender, no distention Musculoskeletal: no edema, pulses present +2 pulses at Radial Arteries Neurological: moves all 4 limbs Parasthesia noted in LUE, remainder of exam unremarkable Psychiatric: normal affect, A&O x 3 Skin: no rash Dx/Plan - Plan Plan: 1. TIA vs CVA -Patient presented w/ RUE paresthesia and RLE subjective weakness - 4/5 strength in all extremities -Patient continues to have RUE paresthesia, although strength and movement appear intact -CT Head: Negative -MRI Brain: NAF -TTE: Pending -Carotid Doppler US: Pending -CTA Head/Neck: Deferred due to GFR 21, Cr 2.3 2. HTN -BP: 177/81 on 03/16 -Allowing for Permissive HTN 220/110 - Hydralazine 10 mg PO Q4H if >220/110 BP -Holding all BP medications at this time -Will resume on 03/17 3. CKD Stage 4 -Cr: 2.3 -GFR: 21 -Renally dose all medications - continue to monitor 4. DM2, Insulin Dependent -Blood Glucose: 101 on 03/16 -Continue home Lantus regimen (12-14U QPM) -QACHS Accuchecks. -Mild SSI w/ Bedtime Sliding Scaled 5. Hx of CAD -CABG (4*) in 2008 -Continue Furosemide and Atorvastatin regimen 6. Anxiety -Continue home Paroxetine regimen Code Statue: Full Code (Patient wants adult children to be MPOA if incapacitated ) Diet: Heart Healthy / Carbohydrate Conscious Activity: Ad jennifer DVT PPx: Heparin Dispo: Patient is currently stable on Stroke Floor for TIA/CVA rule out. TTE and Carotid Doppler Pending. Ensure appropriate management of additional comorbidities and follow Cardiology recommendations as required. Expected LOS < 48H. Addendum - Attending - Attending Attestation Date/Time: 03/16/19 9323 I personally evaluated the patient and discussed the management with Dr. Stark. I agree with the History, Examination, Assessment and Plan documented above with any addition or exceptions noted below. The patient's MRI is negative for acute stroke. Carotid negative for significant stenosis. Getting pt to eval pt as she still feels weak. Restarting bp meds. Echo pending.
[2019-03-16] MEDS ORDERED: Non-Formulary Item 1 EACH (Losartan Potassium [Losartan Potassium] 100 MG) PO SCH (09:00)
[2019-03-16] MEDS ORDERED: Non-Formulary Item 1 EACH (Ferrous Sulfate [Ferrous Sulfate] 325 MG) PO SCH (09:00)
[2019-03-16] MEDS ORDERED: Amlodipine 10 MG TAB PO SCH (09:00)
[2019-03-16] MEDS: Loratadine 10 MG TAB PO SCH (09:20)
[2019-03-16] MEDS: Oxybutynin 5 MG TAB PO SCH (09:20)
[2019-03-16] MEDS: Ferrous Sulfate 325 MG TAB PO SCH (09:21)
[2019-03-16] MEDS: Furosemide 20 MG TAB PO SCH (09:21)
[2019-03-16] MEDS: Aspirin 325 mg Enteric Coated Tablet PO SCH (09:22)
[2019-03-16] MEDS: Losartan 25 MG TAB PO SCH (09:23)
[2019-03-16] MEDS: Heparin 5,000 UNITS/ML VIAL SC SCH ×2 (09:32→20:59)
[2019-03-16] MEDS ORDERED: hydrALAZINE 10 MG TAB PO SCH ×2 (17:15→18:45)
[2019-03-16] MEDS: Insulin Glargine 12 UNITS in Pre-Filled Syringe 1 EACH SC SCH (20:57)
[2019-03-16] MEDS: Atorvastatin Calcium 40 MG TAB PO SCH (20:59)
[2019-03-16] MEDS ORDERED: NIFEdipine XL 30 MG TAB PO SCH ×2 (21:00)
[2019-03-16] MEDS ORDERED: PARoxetine 20 MG TAB PO SCH (21:00)
--- NOTE | 2019-03-17 05:43 | PDOC.FM ---
- Subjective Subjective: Mrs. Lewis was resting comfortably in her bed at the time of evaluation. She denied any acute overnight events such as headaches, changes in vision or ABD pain. She felt confident in her ability to transition back home, and felt that she would be ready for DC today. She asked about receiving a "cancer test" prior to discharge because of a strong family history, but she could not remember what type of cancer she was susceptible to. - Objective Vital Signs & Weight: Vital Signs (12 hours) Temp Pulse Resp BP BP BP Pulse Ox 03/17/19 03:37 97.5 F L 58 L 16 148/66 H 98 03/16/19 23:15 98.4 F 61 16 195/82 H 95 03/16/19 21:40 59 L 189/84 H 03/16/19 21:29 59 L 189/84 H 03/16/19 19:47 98.6 F 59 L 16 177/77 H 98 03/16/19 18:37 62 03/16/19 18:16 178/75 H Weight Admit Weight 57.878 kg Weight 57.878 kg I&O: 03/15/19 03/16/19 03/17/19 06:59 06:59 06:59 Intake Total 728 920 Balance 728 920 Result Diagrams: 03/15/19 09:59 03/17/19 05:17 Phys Exam - Physical Examination Constitutional: NAD HEENT: PERRLA, moist MMs, sclera anicteric, oral pharynx no lesions Neck: no nodes, no JVD, supple, full ROM Respiratory: no wheezing, no rales, no rhonchi, clear to auscultation bilateral Cardiovascular: RRR, no significant murmur, no rub Gastrointestinal: soft, non-tender, no distention, positive bowel sounds Musculoskeletal: no edema, pulses present +2 pulses at Radial Arteries and Dorsalis Pedis Arteries Neurological: non-focal, moves all 4 limbs Lymphatic: no nodes Psychiatric: normal affect Skin: no rash Dx/Plan - Plan Plan: 1. TIA vs HTN Urgency -Patient presented w/ RUE paresthesia and RLE subjective weakness - 4/5 strength in all extremities -Patient continues to have RUE paresthesia, although strength and movement appear intact -CT Head: Negative -MRI Brain: NAF -TTE: EF 55-60%, mild Diastolic Dysfunction -Carotid Doppler US: No significant Stenosis -CTA Head/Neck: Deferred due to GFR 21, Cr 2.3 -Patient's overall condition has improved, despite RUE parasthesia -PT Consult: Patient DC'd for Walking Program on 03/16 2. HTN -BP: 148/66 on 03/17 -Metoprolol XL 12.5 mg PO BID - changed to Metoprolol XL 25 mg PO daily -Losartan 100 mg PO QD -Added Nifedipine 30 mg PO QPM - DC'd Amlodipine 10 mg PO QAM -Hydralazine 10 mg PO Q4H PRN if BP > 180/110 3. CKD Stage 4 -Cr: 2.3 > 2.23 on 03/17 -GFR: 21 -Renally dose all medications - continue to monitor 4. DM2, Insulin Dependent -Blood Glucose: 189 on 03/16 -Continue home Lantus regimen (12-14U QPM) -QACHS Accuchecks. -Mild SSI w/ Bedtime Sliding Scaled 5. Hx of CAD -CABG (4*) in 2007 -Continue Furosemide and Atorvastatin regimen 6. Anxiety -Continue home Paroxetine regimen Code Statue: Full Code (Patient wants adult children to be MPOA if incapacitated ) Diet: Heart Healthy / Carbohydrate Conscious Activity: Ad jennifer DVT PPx: Heparin Dispo: Patient is currently stable on Stroke Floor following TIA vs. HTN work- up. MRI Brain, TTE and Carotid Doppler were all unremarkable. Ensure adequate BP and DM2 control and plan for DC. Expected LOS < 24H. Addendum - Attending - Attending Attestation Date/Time: 03/17/19 1038 I personally evaluated the patient and discussed the management with Dr. Stark. I agree with the History, Examination, Assessment and Plan documented above with any addition or exceptions noted below. BP is better with adjustments to meds. She has had hypoglycemic episodes, will de-escalate insulin treatment and monitor. Can d/c home.
[2019-03-17 06:33] LABS: Anion Gap 10 mmol/L (10-20); BUN (Urea Nitrogen) 27 mg/dL (9.8-20.1); Calc. Creatinine Clearance 17 mL/min (70-130); Calcium 8.4 mg/dL (7.8-10.44); Carbon Dioxide 29 mmol/L (23-31); Chloride 106 mmol/L (98-107); Estimated GFR-MDRD 21; Potassium 3.6 mmol/L (3.5-5.1); Sodium 141 mmol/L (136-145)
[2019-03-17 06:35] LABS: Glucose 54 mg/dL (83-110)
[2019-03-17 07:39] VITALS: TEMP 98.3
[2019-03-17] MEDS: Furosemide 20 MG TAB PO SCH (09:13)
[2019-03-17] MEDS: Aspirin 325 mg Enteric Coated Tablet PO SCH (09:13)
[2019-03-17] MEDS: Losartan 25 MG TAB PO SCH (09:13)
[2019-03-17] MEDS: Ferrous Sulfate 325 MG TAB PO SCH (09:13)
[2019-03-17] MEDS: Heparin 5,000 UNITS/ML VIAL SC SCH (09:13)
[2019-03-17] MEDS: Loratadine 10 MG TAB PO SCH (09:13)
[2019-03-17] MEDS: Oxybutynin 5 MG TAB PO SCH (09:14)
--- NOTE | 2019-03-17 12:01 | DIS ---
DATE OF ADMISSION: 03/15/2019 DATE OF DISCHARGE: 03/17/2019 RESIDENT: Jd Stark MD ADMITTING ATTENDING: Joanie Cole MD DISCHARGE ATTENDING: Joanie Cole MD CONSULTS: None. PROCEDURES: CT brain, noncontrast, which showed no acute intracranial findings. 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 Chronic sphenoid sinusitis on the right side. MRI of brain, noncontrast, impression, was [id number] chronic ischemic white changes with a small old hemorrhagic infarct of the right corpus striatum. No acute findings. Transthoracic echocardiography demonstrating an ejection fraction of 55% to 60% with a mildly dilated left atrium, mild mitral regurgitation, mild thickening of the aortic valve leaflets and [id number] tricuspid regurgitation. PRIMARY DIAGNOSIS: Transient ischemic attack. SECONDARY DIAGNOSES: 1. Diabetes, type 2. 2. Chronic kidney disease, stage 4. 3. Urgency incontinence. 4. Hypertensive urgency. 5. Hypertension. 6. Coronary artery disease. DISCHARGE MEDICATIONS: Nifedipine 30 mg p.o. daily. Discontinued medications: 1. Aspirin 325 mg p.o. daily. 2. Atorvastatin 80 mg p.o. daily. 3. Ferrous sulfate 325 mg p.o. daily. 4. Furosemide 20 mg p.o. daily. 5. Heparin 5000 units subcutaneous q.12 hours. 6. Insulin glargine 12 units subcutaneous daily. 7. Insulin lispro, mild sliding scale. Last dosage administered on 03/15/2019 was 2 units. 8. Loratadine 10 mg p.o. daily. 9. Losartan 100 mg p.o. daily. 10. Metoprolol 25 mg p.o. daily. 11. Oxybutynin chloride 5 mg p.o. daily. 12. Pantoprazole 40 mg p.o. daily. 13. Paroxetine 10 mg p.o. daily. 14. Tizanidine 2 mg p.o. q.8 hours p.r.n. HISTORY OF PRESENT ILLNESS AND HOSPITAL COURSE: Ms. Lewis is an 83-year-old female with history of hypertension, diabetes, transient ischemic attack, who presented to the ED on 03/15/2019 with chief complaint of right upper arm numbness and paresthesia that she noticed when waking up that morning. She also reported stiffness and weakness of her right arm and right leg when trying to get to the bathroom. The patient reported that she felt fine when she went to bed the night before. The patient reports that she has had these symptoms before and reports history of many strokes in which her reports the last one was within the past 6 months. The patient denied chest pain, abdominal pain, back pain, headache, neck pain, or any other complaints. Multiple imaging modalities were performed, which are mentioned elsewhere in this dictation. Permissive hypertension was allowed for 24 hours to rule out stroke following 24-hour period allowing for permissive hypertension. She was restarted on her home medications. She was originally planned for discharge on 03/16/2019. However, due to her unacceptable hypertension with systolic occurring in the 180s and 190s, she was kept for an additional day for observation. Medications were modified to include nifedipine 30 mg p.o. daily and discontinuation of her amlodipine. Her condition improved greatly during her time at the hospital and she was able to tolerate p.o. intake as well as ambulate per her baseline. Prior to discharge, her vital signs were recorded as temperature 98.3, heart rate 62, blood pressure 136/65, respirations 16 per minute, and O2 saturations 98% on room air. LABORATORY VALUES: Reveal WBC count of 8.0, hemoglobin 12.2, hematocrit 36.8, and platelet count 220. Coagulation panel revealed a PT of 12.2 and a PTT of 33.3, and an INR of 0.9. Chem panel revealed a sodium of 141, potassium 3.6, chloride 106, carbon dioxide 29, BUN 27, creatinine 2.23, and glucose 98. Troponins negative x1. TSH 2.1113. DISPOSITION: Stable. DISCHARGE INSTRUCTIONS: 1. Location: Home. 2. Diet: Renal and heart healthy. 3. Activity: Ad jennifer. 4. Followup: The patient was encouraged to follow up with her primary care provider within 7 to 14 days in order to discuss her recent hospitalization and medication optimization. She had several episodes of hypoglycemia during her hospital stay and given her advanced age and comorbidities, she could probably benefit from deescalation of her short-acting insulin in favor of long-acting insulin only. She appeared well and was happy with her care provided during her hospitalization. Job ID: [id number]
[2019-03-17 12:16] VITALS: BP 121/58
== END 2019-03-17 12:03 | disposition home or self-care (01) ==
LOC: ERS 09:43 → 2SE 11:29
PROVIDERS: ADMIT Family Medicine; ATTEND Family Medicine
DX: G45.9 Transient cerebral ischemic attack, unspecified (principal); I16.0 Hypertensive urgency; I12.9 Hypertensive chronic kidney disease with stage 1 through stage 4 chronic kidney disease, or unspecified chronic kidney disease; E11.22 Type 2 diabetes mellitus with diabetic chronic kidney disease; N18.4 Chronic kidney disease, stage 4 (severe); I25.10 Atherosclerotic heart disease of native coronary artery without angina pectoris; E11.65 Type 2 diabetes mellitus with hyperglycemia; J32.3 Chronic sphenoidal sinusitis; F41.9 Anxiety disorder, unspecified; Z86.73 Personal history of transient ischemic attack (TIA), and cerebral infarction without residual deficits; Z79.4 Long term (current) use of insulin; Z79.82 Long term (current) use of aspirin; Z79.899 Other long term (current) drug therapy; Z88.2 Allergy status to sulfonamides; Z88.5 Allergy status to narcotic agent; Z95.1 Presence of aortocoronary bypass graft
CPT/HCPCS: 70450; 70551; 80048 ×2; 80061; 82962 ×3; 83735; 84100; 84484; 85610; 85730; 93005; 93306; 93880; 96361; 96372 ×3; 96374; 97116; 97139 ×4; 97530 ×2; 97535 ×2; 99285; G0378 ×4; 36415; 36416; 80053; 84443; 85025; J1644; J1815

== ENCOUNTER 2019-03-27 20:19 | Inpatient (IN) | payer MEDICARE, MEDICAID ==
[2019-03-27 21:45] LABS: Hemoglobin 13.9 g/dL (12.0-16.0); Mean Corpuscular HGB CONC 33.3 g/dL (32.0-36.0); Mean Corpuscular Hemoglobin 28.2 pg (27.0-31.0); Mean Corpuscular Volume 84.8 fL (78.0-98.0); Mean Platelet Volume 7.7 fL (7.4-10.4); Platelet Count 288 thou/uL (130-400); RBC Distribution Width 12.8 % (11.5-14.5); Red Blood Cell (RBC) Count 4.91 mill/uL (4.20-5.40); White Blood Cell (WBC) Count 16.8 thou/uL (4.8-10.8)
--- NOTE | 2019-03-27 22:01 | CT ---
CT Brain WO Con History: Trauma. Fall. Comparison: CT brain March 15, 2019 Findings: Right forehead soft tissue contusion with hematoma. Moderate atrophy. No acute hemorrhage o r infarct. No midline shift or mass effect. The calvarium is intact. Chronic inspissated debris within the right sphenoid sinus. Impression: Right forehead soft tissue contusion without acute posttraumatic intracranial sequelae.
[2019-03-27 22:03] LABS: ALT (SGPT) 13 U/L (8-55); AST (SGOT) 29 U/L (5-34); Albumin 3.4 g/dL (3.4-4.8); Alkaline Phosphatase 110 U/L (40-110); Anion Gap 15 mmol/L (10-20); BUN (Urea Nitrogen) 37 mg/dL (9.8-20.1); Band 9 % (5-11); Bilirubin, Total 0.5 mg/dL (0.2-1.2); CK (CPK) 711 U/L (29-168); Calc. Creatinine Clearance 0 mL/min (70-130); Carbon Dioxide 20 mmol/L (23-31); Chloride 108 mmol/L (98-107); Estimated GFR-MDRD 20; Globulin 3.3 g/dL (2.4-3.5); Glucose 115 mg/dL (83-110); Lymphocytes 6 % (21-51); MDiff Complete? YES; Monocytes 6 % (0-10); Myelocyte 1 % (0-0); Neutrophil 78 % (42-75); Potassium 4.1 mmol/L (3.5-5.1); Protein, Total 6.7 g/dL (6.0-8.3); Sodium 139 mmol/L (136-145)
--- NOTE | 2019-03-27 22:12 | CT ---
CT Cervical Spine WO Con History: Fall Comparison: None. Findings: The occipital condyles are intact. The odontoid process is intact. High-grade facet arthrop athy of the cervical spine. Large posterior disc osteophyte complex at C5/C6 causing neural foraminal and spinal canal narrowing. As is a chronic degenerative process. Lung apices are clear. Dense calcifications of the aorta. Calcification of the right lower thyroid. Impression: Advanced degenerative changes. No acute fracture or malalignment.
--- NOTE | 2019-03-27 22:15 | RAD ---
XR Pelvis AP STANDARD History: Fall Comparison: None. Findings: Bones are demineralized. Advanced degenerative changes lower lumbar spine. No acute displac ed fracture or malalignment. Extensive enthesopathic changes. High-grade vascular calcifications. Impression: No acute displaced fracture.
--- NOTE | 2019-03-27 22:16 | RAD ---
XR Femur Rt 2 View STANDARD History: Fall Comparison: None. Findings: Femur is intact. No acute displaced fracture. High-grade vascular calcifications. Medial th igh surgical clips. Impression: No acute displaced fracture.
--- NOTE | 2019-03-27 22:20 | RAD ---
XR Chest 1 View Portable History: Preop Comparison: None. Findings: Large sliding hiatal hernia. Remainder the lungs are clear. No pneumothorax. No effusion. Impression: Large sliding hiatal hernia.
[2019-03-27 22:35] LABS: CKMB 10.7 ng/mL (0-6.6)
[2019-03-27] MEDS ORDERED: Morphine 2 MG/ML SYRINGE ONE (22:35)
[2019-03-27] MEDS ORDERED: Aspirin 325 MG TAB ONE (22:35)
[2019-03-27] MEDS ORDERED: Ondansetron ODT 4 MG TAB PO PRN (22:54)
[2019-03-27] MEDS ORDERED: Acetaminophen 325 MG TAB PO PRN (22:54)
[2019-03-27 23:15] LABS: Bilirubin Negative (Negative); Blood, Urine Large (Negative); Clarity Cloudy (Clear); Glucose, Urine (Dipstick) 100 mg/dL (Negative); Leukocyte Trace (Negative); Nitrite Negative (Negative); Protein, Urine (Dipstick) > or equal to 300 mg/dL (Neg-Trace); Urobilinogen 0.2 mg/dL (Less than 2)
[2019-03-27 23:22] LABS: Bacteria/HPF 4+ HPF (None Seen); RBC/HPF 21-50 HPF (0-3); Squamous Epithelial 0-3 HPF (0-3)
--- NOTE | 2019-03-27 23:54 | PDOC.FPRHP ---
- History of Present Illness Chief Complaint: fall History of Present Illness: Ms. Lewis is a pleasant 83yoF who presented to the ED after she was found down in her home. She sustained a fall sometime around 8am in this morning and was unable to get up by herself. She was found by a family member approximately 12 hours later. She states she got out of bed, used the restroom and as she was leaving the bathroom she bent to pick something up and when she stood she became dizzy, lost her balance, and fell. She was recently discharged from the hospital after a TIA/CVA workup earlier this month. - Allergies/Adverse Reactions Allergies Allergy/AdvReac Type Severity Reaction Status Date / Time Sulfa (Sulfonamide Allergy Verified 03/15/19 15:24 Antibiotics) codeine [Codeine] AdvReac Mild Verified 05/31/17 10:00 - Home Medications Medication Instructions Recorded Confirmed Type Esomeprazole Magnesium [NexIUM] 40 mg PO DAILY 07/16/15 03/28/19 History Ferrous Sulfate 325 mg PO QAM 07/16/15 03/28/19 History Losartan Potassium 100 mg PO DAILY 07/16/15 03/28/19 History Oxybutynin [Ditropan] 5 mg PO DAILY 07/16/15 03/28/19 History Aspirin [Ecotrin Low Strength] 325 mg PO QAM 09/01/15 03/28/19 History Atorvastatin Calcium [Lipitor] 80 mg PO HS #30 tab 07/31/16 03/28/19 Rx Furosemide [Lasix] 20 mg PO DAILY 05/31/17 03/28/19 History Insulin Glargine,Hum.Rec.Anlog 12 unit SQ HS 05/31/17 03/28/19 History [Lantus Solostar] Loratadine [Allergy Relief] 10 mg PO DAILY 03/15/19 03/28/19 History Metoprolol Succinate 12.5 mg PO DAILY 03/15/19 03/28/19 History PARoxetine HCl [Paroxetine HCl] 10 mg PO HS 03/15/19 03/28/19 History tiZANidine HCl [Tizanidine HCl] 2 mg PO Q8HR PRN 03/15/19 03/28/19 History NIFEdipine [Procardia XL] 30 mg PO QPM 30 Days #30 tab 03/17/19 03/28/19 Rx - History PMHx: TIA CKD stage IV HTN Insulin dependent DM II CAD PSHx: X4 vessel CABG R hand surgery Hysterectomy Appendectomy FHx: Father: CVA Mother: CHF Brother: CVA Social: Denies tobacco, alcohol or illicit drug use. - Review of Systems General: denies: fever/chills, weight/appetite/sleep changes, night sweats, fatigue Eyes: denies: eye pain, vision changes ENT: reports: nasal congestion, rhinorrhea Respiratory: reports: cough. denies: congestion, shortness of breath Cardiovascular: denies: chest pain, palpitation, edema Gastrointestinal: denies: nausea, vomiting, diarrhea, constipation, abdominal pain Genitourinary: denies: incontinence, dysuria, polyuria Skin: denies: rashes, lesions Musculoskeletal: reports: tenderness, stiffness. denies: pain Neurological: reports: weakness. denies: numbness, syncope Psychological: reports: anxiety, depression - Vital signs 03/28/19 01:45 Temperature 98.4 F Pulse Rate 71 Blood Pressure 193/71 H [Semi-Fowlers] Respiratory 18 Rate O2 Sat by Pulse 96 Oximetry Oxygen Delivery Room Air Method - Physical Exam Constitutional: NAD, awake, alert and oriented, well developed HEENT: normocephalic and atraumatic, PERRLA, EOMI, conjunctiva clear, grossly normal vision, grossly normal hearing Neck: supple, trachea midline Heart: RRR, normal S1/S2, no murmurs/rubs/gallops Lungs: CTAB, no respiratory distress, good air movement, no wheezing Abdomen: soft, non-tender, bowel sounds present Musculoskeletal: normal structure, normal tone -Musculoskeletal: Right leg tender, complaining of muscle cramps Neurological: no focal deficit, CN II-XII intact Skin: no rash/lesions, good turgor Heme/Lymphatic: no purpura, no petechia -Heme/Lymphatic: Ecchymosis from fall FMR H&P: Results - Labs Result Diagrams: 03/27/19 21:11 03/27/19 21:11 Lab results: WBC 16.8 thou/uL (4.8-10.8) H 03/27/19 21:11 Hgb 13.9 g/dL (12.0-16.0) 03/27/19 21:11 Hct 41.7 % (36.0-47.0) 03/27/19 21:11 MCV 84.8 fL (78.0-98.0) 03/27/19 21:11 Plt Count 288 thou/uL (130-400) 03/27/19 21:11 Band Neuts % (Manual) 9 % (5-11) 03/27/19 21:11 Sodium 139 mmol/L (136-145) 03/27/19 21:11 Potassium 4.1 mmol/L (3.5-5.1) 03/27/19 21:11 Chloride 108 mmol/L (98-107) H 03/27/19 21:11 Carbon Dioxide 20 mmol/L (23-31) L 03/27/19 21:11 BUN 37 mg/dL (9.8-20.1) H 03/27/19 21:11 Creatinine 2.30 mg/dL (0.6-1.1) H 03/27/19 21:11 Glucose 115 mg/dL (83-110) H 03/27/19 21:11 Calcium 9.0 mg/dL (7.8-10.44) 03/27/19 21:11 Total Bilirubin 0.5 mg/dL (0.2-1.2) 03/27/19 21:11 AST 29 U/L (5-34) 03/27/19 21:11 ALT 13 U/L (8-55) 03/27/19 21:11 Alkaline Phosphatase 110 U/L (40-110) 03/27/19 21:11 Creatine Kinase 711 U/L (29-168) H 03/27/19 21:11 CK-MB (CK-2) 10.7 ng/mL (0-6.6) H* 03/27/19 21:11 Serum Total Protein 6.7 g/dL (6.0-8.3) 03/27/19 21:11 Albumin 3.4 g/dL (3.4-4.8) 03/27/19 21:11 Urine Ketones 15 mg/dL (Negative) A 03/27/19 23:03 Urine Blood Large (Negative) A 03/27/19 23:03 Urine Nitrite Negative (Negative) 03/27/19 23:03 Ur Leukocyte Esterase Trace (Negative) H 03/27/19 23:03 Urine RBC 21-50 HPF (0-3) A 03/27/19 23:03 Urine WBC 7-10 HPF (0-3) A 03/27/19 23:03 Ur Squamous Epith Cells 0-3 HPF (0-3) 03/27/19 23:03 Urine Bacteria 4+ HPF (None Seen) A 03/27/19 23:03 Laboratory Tests 03/27/19 03/28/19 21:11 00:57 CK-MB (CK-2) 10.7 H* 15.4 H* Troponin I 0.054 H 0.036 H - EKG Interpretation EKG: NSR - Radiology Interpretation CT scan - head Status: report reviewed by me (Impression: Right forehead soft tissue contusion without acute posttraumatic intracranial sequelae. C-spine: Impression: Advanced degenerative changes. No acute fracture or malalignment.) Other Status: report reviewed by me ( Findings: Femur is intact. No acute displaced fracture. High-grade vascular calcifications. Medial thigh surgical clips. Pelvis: Findings: Bones are demineralized. Advanced degenerative changes lower lumbar spine. No acute displaced fracture or malalignment.) Chest x-ray Status: report reviewed by me (Impression: Large sliding hiatal hernia.) FMR H&P: A/P - Plan S/P mechanical fall - Complete imaging negative for acute fracture or intracranial bleed. - PT/OT/rehab consults ordered - Discharge planning needed for rehab placement for deconditioning / increased risk of fall. HUEY on CKD - Creatinine 2.30, up from baseline. - Gentle IV fluid rehydration. Elevated CK - 711 on admission. Will rehydrate w/ IV fluids overnight and recheck in the AM. Urinary tract infection - 4+ bacteria, 7-10 WBC, Blood, and Leukocyte esterase + - Will treat with Rocephin Elevated troponin - Initial 0.054, will trend. - Does not have chest pain. Hypertension - BP in the 200s / 100s in the ED. - Continue home medications. - Hydralazine prn for elevated BP. Will monitor. Leukocytosis - UTI vs inflammatory process 2/2 fall - Will repeat CBC in the am. Disposition/LOS: Dispo: Stable VTE: SCDs. No pharmaco d/t fall risk Code: Full PCP: Isaiah CORRALES FMR H&P: Upper Level - Pertinent history 83 yo female presents following fall at home. Fall occurred in AM and was not discovered for approximately 12 hours. Patient had trauma evaluation with NAD found on CT and XR imaging. Patient recently had full cardiac/TIA workup in recent past. Consideration was given to rehab evaluation, but patient had elevated BP and HUEY with elevated CK on admission. Please see automotive internet sales consultant note above for further information. - Plan Date/Time: 03/27/19 3864 I, Daniel Miller MD, have evaluated this patient and agree with findings/ plan as outlined by automotive internet sales consultant resident. Pertinent changes/additions are listed here. 1. s/p mechanical fall - NAD found on imaging - PT/OT/rehab consults ordered - Plan for discharge to rehab facility 2. HUEY on CKD - Baseline <2.00 - 2.37 on admission - gentle IVF 3. Elevated CK - Not rhabdomyolysis range at this time - IVF - Recheck in AM 4. Elevated Troponin - Trending troponins - No active chest pain at this time - Consider further evaluation depending on results 5. HTN - Continue home meds - PRN available PCP: SAVANNA - Dr. Colon CODE STATUS: FULL CODE Disposition: Stable, admit to medical observation for further evaluation. Addendum - Attending - Attending Attestation Date/Time: 03/28/19 8219 I personally evaluated the patient and discussed the management with Dr. Dhaliwal/ Paul. I agree with the History, Examination, Assessment and Plan documented above with any addition or exceptions noted below. Patient here after being found down yesterday for prolonged period. Son reports patient is at mental baseline. She was previously doing well. Trauma workup negative. She did have elevated CK and evidence of UTI. We are providing gentle fluid hydration and treating her UTI. Therapy services and consider rehab placement. She had some mild HUEY on CKD, fluids and trending. Anticipate 2-3 days with post acute care placement need.
[2019-03-28] MEDS ORDERED: Morphine 2 MG/ML SYRINGE ONE (00:19)
[2019-03-28 01:51] LABS: CKMB 15.4 ng/mL (0-6.6)
[2019-03-28] MEDS: Lactated Ringer's 1,000 ML IV SCH ×3 (01:58→15:15)
[2019-03-28] MEDS: hydrALAZINE 20 MG/ML VIAL SLOW IVP PRN ×2 (02:02→12:13)
[2019-03-28] MEDS: cefTRIAXone\\ROCEPHIN 1 GM in Sodium Chloride 0.9% 100 ML IVPB SCH (02:06)
[2019-03-28 02:13] VITALS: BMI 25.9
[2019-03-28] MEDS ORDERED: Dextrose 50% Abboject 50 ML SYRINGE SLOW IVP PRN (02:34)
[2019-03-28] MEDS ORDERED: Dextrose 5% in Water 1,000 ML IV PRN (02:34)
--- NOTE | 2019-03-28 06:20 | PDOC.FM ---
- Subjective Subjective: Ms. Lewis was sleeping well overnight. Family member present in room and says she slept well. Denies pain. - Objective MAR Reviewed: Yes Vital Signs & Weight: Vital Signs (12 hours) Temp Pulse Resp BP BP Pulse Ox 03/28/19 05:31 98.1 F 67 18 144/58 H 99 03/28/19 02:26 151/63 H 03/28/19 02:02 71 193/71 H 03/28/19 01:45 98.4 F 71 18 193/71 H 96 Weight Weight 58.2 kg I&O: 03/26/19 03/27/19 03/28/19 06:59 06:59 06:59 Intake Total 700 Balance 700 Result Diagrams: 03/27/19 21:11 03/28/19 06:55 Phys Exam - Physical Examination Constitutional: NAD Respiratory: clear to auscultation bilateral (anteriorly) Cardiovascular: RRR 3/6 systolic murmur worse in mitral area Gastrointestinal: soft, non-tender Musculoskeletal: no edema Neurological: moves all 4 limbs Skin: normal turgor, cap refill <2 seconds Dx/Plan - Plan Plan: S/P mechanical fall - Complete imaging negative for acute fracture or intracranial bleed. - PT/OT/rehab consults ordered - Discharge planning needed for rehab placement vs SNF for deconditioning / increased risk of fall. HUEY on CKD - Creatinine 2.30, up from baseline, pending am recheck - Gentle IV fluid rehydration Elevated CK - 711 on admission. IVF, recheck pending Urinary tract infection - 4+ bacteria, 7-10 WBC, Blood, and Leukocyte esterase + - Rocephin (03/27) Elevated troponin, downtrended - Initial 0.054, downtrended. Likely 2/2 demand. Asymptomatic. Hypertension - BP in the 200s / 100s in the ED. - Continue home medications. - Hydralazine prn for elevated BP. Will monitor. Leukocytosis - UTI vs inflammatory process 2/2 fall - Repeat CBC this am Disposition/LOS: Pending am labs. PT/OT consults today. Son said they need to discuss as a family placement options. One said has mentioned recently that she may be better in a nursing facility. Dispo: Stable VTE: SCDs. No pharmaco d/t fall risk Code: Full PCP: Isaiah - [facility] Addendum - Attending - Attending Attestation Date/Time: 03/28/19 0800 I personally evaluated the patient and discussed the management with Dr. Monson. I agree with the History, Examination, Assessment and Plan documented above with any addition or exceptions noted below. Please see H/P for today's addendum.
[2019-03-28 07:44] LABS: Anion Gap 14 mmol/L (10-20); BUN (Urea Nitrogen) 36 mg/dL (9.8-20.1); CK (CPK) 1259 U/L (29-168); Calc. Creatinine Clearance 18 mL/min (70-130); Carbon Dioxide 20 mmol/L (23-31); Chloride 112 mmol/L (98-107); Estimated GFR-MDRD 21; Glucose 104 mg/dL (83-110); Potassium 3.5 mmol/L (3.5-5.1); Sodium 142 mmol/L (136-145)
[2019-03-28] MEDS: Losartan 25 MG TAB PO SCH (08:24)
[2019-03-28] MEDS: Oxybutynin 5 MG TAB PO SCH (08:25)
--- NOTE | 2019-03-28 11:34 | PDOC.BPN ---
- Brief Progress Note Evaluated patient earlier this morning. Called as family was concerned about patient's movement. Reported they had to help her eat breakfast as she would not feed herself. Patient is laying in bed. She will talk, respond to questions appropriately. Able to swallow and tolerate breakfast. Follows commands. Neuro: CN exam normal. Will squeeze hands bilaterally on command, though weak. Equally bilaterally. Unable to raise arms. 2/6 strength BUE and BLE. Wiggles bilateral toes on exam. Unable to bend knee. Extremities are not flaccid. B/l feet dorsiflexed. Exam not consistent with stroke like presentation. Unsure what muscle strength was at presentation and family was unsure either. PT and OT coming by this morning to evaluate patient.
[2019-03-28] MEDS: Cepastat Lozenges 1 LOZ PO PRN ×2 (12:13→20:36)
[2019-03-28] MEDS: HumaLOG 300 UNITS/3 ML VIAL SC PRN ×2 (12:14→16:47)
[2019-03-28] MEDS: Acetaminophen 500 MG TAB PO PRN (16:47)
[2019-03-28 19:53] LABS: #Eosinphils 0.1 thou/uL (0.0-0.7); #Lymphocytes 1.2 thou/uL (1.20-3.40); #Monocytes 0.6 thou/uL (0.11-0.59); #Neutrophils 10.6 thou/uL (1.40-6.50); %Basophils 0.4 % (0.0-1.0); %Eosinophils 1.1 % (0.0-10.0); %Lymphocytes 9.2 % (21.0-51.0); %Neutrophils 84.4 % (42.0-75.0); Hemoglobin 10.3 g/dL (12.0-16.0); Mean Corpuscular HGB CONC 33.1 g/dL (32.0-36.0); Mean Corpuscular Hemoglobin 28.4 pg (27.0-31.0); Mean Corpuscular Volume 85.7 fL (78.0-98.0); Mean Platelet Volume 7.3 fL (7.4-10.4); Platelet Count 208 thou/uL (130-400); Red Blood Cell (RBC) Count 3.62 mill/uL (4.20-5.40); White Blood Cell (WBC) Count 12.6 thou/uL (4.8-10.8)
--- NOTE | 2019-03-28 19:57 | CT ---
CT Brain WO Con History: Altered mental status Comparison: CT prior day Findings: No acute hemorrhage or infarct. No midline shift or mass effect. Ventricular size and extra -axial CSF spaces are similar. Similar appearance of the right forehead scalp contusion. Impression: Similar appearance of the right forehead scalp contusion. No acute hemorrhage.
[2019-03-28 20:01] LABS: ALT (SGPT) 16 U/L (8-55); AST (SGOT) 40 U/L (5-34); Albumin 2.4 g/dL (3.4-4.8); Alkaline Phosphatase 76 U/L (40-110); Anion Gap 12 mmol/L (10-20); BUN (Urea Nitrogen) 42 mg/dL (9.8-20.1); Bilirubin, Total 0.3 mg/dL (0.2-1.2); CK (CPK) 994 U/L (29-168); Calc. Creatinine Clearance 16 mL/min (70-130); Calcium 7.8 mg/dL (7.8-10.44); Carbon Dioxide 20 mmol/L (23-31); Chloride 109 mmol/L (98-107); Estimated GFR-MDRD 18; Globulin 2.3 g/dL (2.4-3.5); Glucose 196 mg/dL (83-110); Potassium 3.5 mmol/L (3.5-5.1); Protein, Total 4.7 g/dL (6.0-8.3); Sodium 137 mmol/L (136-145)
[2019-03-28] MEDS: NIFEdipine XL 30 MG TAB PO SCH (20:27)
[2019-03-28] MEDS: PARoxetine 20 MG TAB PO SCH (20:27)
[2019-03-28] MEDS: Atorvastatin Calcium 40 MG TAB PO SCH (20:28)
[2019-03-28] MEDS: Insulin Glargine 12 UNITS in Pre-Filled Syringe 1 EACH SC SCH (20:31)
[2019-03-28] MEDS ORDERED: Non-Formulary Item 1 EACH (Insulin Glargine,Hum.Rec.Anlog [Lantus Solostar] 12 UNIT) SQ SCH (21:00)
[2019-03-29] MEDS: Lactated Ringer's 1,000 ML IV SCH ×4 (00:56→21:58)
[2019-03-29] MEDS: cefTRIAXone\\ROCEPHIN 1 GM in Sodium Chloride 0.9% 100 ML IVPB SCH (01:00)
--- NOTE | 2019-03-29 06:40 | PDOC.FM ---
- Subjective Subjective: Ms. Lewis was sleeping in bed. Son present in room. Notes she has been mumbling things from past or complaining of pain all night. He says she does repeat things at baseline, has signs of dementia. In past has also had periods of hallucinations. Patient was doing this as I was talking to son but as soon as I went to bedside she talked to me in complete, coherent sentences about her groin pain and how we should do an xray. - Objective MAR Reviewed: Yes Vital Signs & Weight: Vital Signs (12 hours) Temp Pulse Resp BP BP Pulse Ox 03/29/19 05:31 98.6 F 72 18 177/63 H 95 03/29/19 00:00 98.8 F 69 18 166/61 H 97 03/28/19 20:27 67 162/63 H 03/28/19 20:00 98.0 F 67 18 137/57 L 98 Weight Admit Weight 58.2 kg Weight 58.2 kg I&O: 03/27/19 03/28/19 03/29/19 06:59 06:59 06:59 Intake Total 700 3420 Output Total 450 Balance 700 2970 Result Diagrams: 03/29/19 06:28 03/28/19 19:25 Phys Exam - Physical Examination HEENT: moist MMs Respiratory: no wheezing, clear to auscultation bilateral Cardiovascular: RRR, no significant murmur Gastrointestinal: soft, non-tender, positive bowel sounds Musculoskeletal: no edema wiggles bilateral toes and squeezes hand weakly on command Skin: normal turgor Dx/Plan (1) UTI (urinary tract infection) Status: Acute (2) Chronic kidney disease, stage 4 (severe) Code(s): N18.4 - CHRONIC KIDNEY DISEASE, STAGE 4 (SEVERE) Status: Chronic (3) Coronary artery disease Code(s): I25.10 - ATHSCL HEART DISEASE OF [place] CORONARY ARTERY W/O ANG PCTRS Status: Chronic Qualifiers: Coronary Disease-Associated Artery/Lesion type: bypass graft [place] vs. transplanted heart: [place] heart Associated angina: without angina Qualified Code(s): I25.810 - Atherosclerosis of coronary artery bypass graft(s) without angina pectoris (4) DM2 (diabetes mellitus, type 2) Status: Chronic Qualifiers: Diabetes mellitus intermodal owner operator truck driver insulin use: without long-term use Diabetes mellitus complication status: with hyperglycemia Qualified Code(s): E11.65 - Type 2 diabetes mellitus with hyperglycemia (5) Hypertension Code(s): I10 - ESSENTIAL (PRIMARY) HYPERTENSION Status: Chronic Qualifiers: Hypertension type: essential hypertension Qualified Code(s): I10 - Essential (primary) hypertension - Plan Plan: Urinary tract infection - 4+ bacteria, 7-10 WBC, Blood, and Leukocyte esterase + - Rocephin (03/27) - WBC downtrending Encephalopathy - likely 2/2 infection. Electrolytes normal. Likely has some baseline dementia. Encouraged reorientation - CT brain 03/28 was again negative and neuro exam inconsistent. Do not suspect stroke Physical deconditioning S/P mechanical fall - Complete imaging negative for acute fracture or intracranial bleed. - PT/OT/rehab consults ordered - Discharge planning needed for rehab placement vs SNF for deconditioning / increased risk of fall. HUEY on CKD, nearly at baseline - Creatinine 2.30, pending recheck this am - Gentle IV fluid rehydration, will decrease pending Cr Elevated CK - 711->1200, now downtrending Elevated troponin, downtrended - Initial 0.054, downtrended. Likely 2/2 demand. Asymptomatic. Hypertension - BP in the 200s / 100s in the ED. - Continue home medications. - Hydralazine prn for elevated BP. Will monitor. Leukocytosis - UTI vs inflammatory process 2/2 fall - Repeat CBC this am VTE: SCDs. No pharmaco d/t fall risk Code: Full PCP: Isaiah CORRALES Disposition/LOS: PT/OT to work with patient. CM consult is in, patient will need placement for discharge. Addendum - Attending - Attending Attestation Date/Time: 03/29/19 0914 I personally evaluated the patient and discussed the management with Dr. Monson. I agree with the History, Examination, Assessment and Plan documented above with any addition or exceptions noted below. Patient here for encephalopathy and fall likely 2/2 infection, UTI. She continues on Rocephin and WBC downtrending. Patient had issues yesterday with reports of her not being able to use her arms and legs and worsening mentation. Her physical exam was not consistent with CVA. Due to history of trauma and concern for hemorrhage/mass effect, CT scan repeated which was normal. The patient's condition is fluid and changes depending on distraction. She is able to converse normally this morning. Continue abx for UTI and continue PT/OT and work on disposition, hopefully either Rehab or SNF. Monitor for UOP.
[2019-03-29 08:02] LABS: Band 6 % (5-11); Eosinophils 2 % (0-10); Hemoglobin 9.9 g/dL (12.0-16.0); Lymphocytes 11 % (21-51); MDiff Complete? YES; Mean Corpuscular HGB CONC 33.2 g/dL (32.0-36.0); Mean Corpuscular Hemoglobin 28.4 pg (27.0-31.0); Mean Corpuscular Volume 85.5 fL (78.0-98.0); Mean Platelet Volume 7.7 fL (7.4-10.4); Monocytes 1 % (0-10); Neutrophil 80 % (42-75); Platelet Count 198 thou/uL (130-400); RBC Distribution Width 12.9 % (11.5-14.5); Red Blood Cell (RBC) Count 3.47 mill/uL (4.20-5.40); White Blood Cell (WBC) Count 12.5 thou/uL (4.8-10.8)
[2019-03-29] MEDS: Losartan 25 MG TAB PO SCH (08:56)
[2019-03-29] MEDS: Oxybutynin 5 MG TAB PO SCH (08:57)
[2019-03-29] MEDS: Acetaminophen 500 MG TAB PO PRN ×2 (08:57→16:10)
[2019-03-29 10:55] LABS: Anion Gap 11 mmol/L (10-20); BUN (Urea Nitrogen) 37 mg/dL (9.8-20.1); Calc. Creatinine Clearance 16 mL/min (70-130); Calcium 7.6 mg/dL (7.8-10.44); Carbon Dioxide 19 mmol/L (23-31); Chloride 108 mmol/L (98-107); Estimated GFR-MDRD 19; Glucose 213 mg/dL (83-110); Potassium 3.5 mmol/L (3.5-5.1); Sodium 134 mmol/L (136-145)
[2019-03-29] MEDS: HumaLOG 300 UNITS/3 ML VIAL SC PRN ×3 (11:58→20:57)
[2019-03-29] MEDS ORDERED: Clopidogrel Bisulfate 75 MG TAB ONE (20:52)
[2019-03-29] MEDS: NIFEdipine XL 30 MG TAB PO SCH (20:56)
[2019-03-29] MEDS: Atorvastatin Calcium 40 MG TAB PO SCH (20:56)
[2019-03-29] MEDS: Insulin Glargine 12 UNITS in Pre-Filled Syringe 1 EACH SC SCH (20:56)
[2019-03-29] MEDS: PARoxetine 20 MG TAB PO SCH (20:58)
[2019-03-30] MEDS: Acetaminophen 500 MG TAB PO PRN ×2 (01:26→21:19)
[2019-03-30] MEDS: cefTRIAXone\\ROCEPHIN 1 GM in Sodium Chloride 0.9% 100 ML IVPB SCH (02:32)
[2019-03-30] MEDS: Lactated Ringer's 1,000 ML IV SCH (06:25)
--- NOTE | 2019-03-30 06:37 | PDOC.FM ---
- Subjective Subjective: Ms. Lewis was laying in bed. She had no complaints this morning. She followed commands and spoke to me in normal conversation. Continues to be weak and is not moving extremities much. - Objective MAR Reviewed: Yes Vital Signs & Weight: Vital Signs (12 hours) Temp Pulse Resp BP Pulse Ox 03/30/19 04:00 98.2 F 71 18 164/64 H 99 03/29/19 23:57 98.5 F 69 18 172/55 H 95 03/29/19 20:56 73 03/29/19 20:00 99.3 F 73 18 176/65 H 100 Weight Admit Weight 58.2 kg Weight 58.2 kg I&O: 03/28/19 03/29/19 03/30/19 06:59 06:59 06:59 Intake Total 700 3420 3460 Output Total 450 Balance 700 2970 3460 Result Diagrams: 03/30/19 13:22 03/30/19 06:24 Phys Exam - Physical Examination Constitutional: NAD Respiratory: no wheezing, clear to auscultation bilateral Cardiovascular: RRR 3/6 systolic murmur Gastrointestinal: soft, non-tender, positive bowel sounds Musculoskeletal: no edema, pulses present Neurological: normal sensation (no change in exam compared to yesterday) weakly squeezes both hands and wiggles both toes. CN exam intact. Normal fluid speech, no problems swallowing. Otherwise will not move extrem Psychiatric: A&O x 3 Skin: cap refill <2 seconds Dx/Plan (1) UTI (urinary tract infection) Status: Acute (2) Chronic kidney disease, stage 4 (severe) Code(s): N18.4 - CHRONIC KIDNEY DISEASE, STAGE 4 (SEVERE) Status: Chronic (3) Coronary artery disease Code(s): I25.10 - ATHSCL HEART DISEASE OF [place] CORONARY ARTERY W/O ANG PCTRS Status: Chronic Qualifiers: Coronary Disease-Associated Artery/Lesion type: bypass graft [place] vs. 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 Electrolytes normal. Likely has some baseline dementia. Encouraged reorientation. Unsure about patient effort. It is interesting how at times she will be disoriented, blabbering things then immediately afterward will have full conversation demonstrating high level cognition. - CT brain 03/28 was again negative and neuro exam inconsistent. Do not suspect stroke Physical deconditioning S/P mechanical fall - Complete imaging negative for acute fracture or intracranial bleed. - PT/OT/rehab consults ordered - Discharge planning needed for rehab placement vs SNF for deconditioning / increased risk of fall. HUEY on CKD, nearly at baseline - pending recheck this am - Gentle IV fluid rehydration, will decrease pending Cr improvement Rhabdomyolysis, improved - 711->1200, now downtrended Elevated troponin, downtrended - Initial 0.054, downtrended. Likely 2/2 demand. Asymptomatic. Hypertension - BP in the 200s / 100s in the ED. - Continue home medications. BP in 160s with wide pulse pressure, will not change regimen at this time - Hydralazine prn for elevated BP. Will monitor. Leukocytosis, improving - 2/2 UTI Hypokalemia - replace and recheck in am VTE: SCDs. No pharmaco d/t fall risk Code: Full PCP: Isaiah CORRALES Disposition/LOS: From an infectious standpoint, appears to be improving with labs nearly back to baseline. Replaced K+. Continues to have profound weakness. Exam not consistent with particular etiology and repeat CT brain negative. PT/ OT to work with patient. CM consult is in, patient will need placement for discharge. Addendum - Attending - Attending Attestation Date/Time: 03/30/19 3930 I personally evaluated the patient and discussed the management with Dr. Monson I agree with the History, Examination, Assessment and Plan documented above with any addition or exceptions noted below. Admitted for encephalopathy. Unsure etiology. Workup still in process. Still with confusion and delirium. No evidence of infection at this time. Continued weakness. No UMNL on exam. Will discuss case with neurology. Continue to work with PT. CM following for assistance with rehab. Kim
[2019-03-30 07:36] LABS: Anion Gap 10 mmol/L (10-20); BUN (Urea Nitrogen) 31 mg/dL (9.8-20.1); Calc. Creatinine Clearance 17 mL/min (70-130); Calcium 7.5 mg/dL (7.8-10.44); Carbon Dioxide 21 mmol/L (23-31); Chloride 109 mmol/L (98-107); Estimated GFR-MDRD 21; Glucose 136 mg/dL (83-110); Potassium 3.3 mmol/L (3.5-5.1); Sodium 137 mmol/L (136-145)
[2019-03-30] MEDS: Losartan 25 MG TAB PO SCH (08:13)
[2019-03-30] MEDS: Aspirin 325 mg Enteric Coated Tablet PO SCH (08:13)
[2019-03-30] MEDS ORDERED: Potassium Chloride 20 MEQ TAB PO SCH (10:30)
[2019-03-30] MEDS: Cephalexin 250 MG CAP PO SCH ×2 (13:48→21:21)
[2019-03-30 14:07] LABS: Band 8 % (5-11); Eosinophils 3 % (0-10); Hemoglobin 10.1 g/dL (12.0-16.0); Lymphocytes 7 % (21-51); MDiff Complete? YES; Mean Corpuscular HGB CONC 32.7 g/dL (32.0-36.0); Mean Corpuscular Volume 85.6 fL (78.0-98.0); Monocytes 6 % (0-10); Neutrophil 68 % (42-75); Platelet Count 179 thou/uL (130-400); Platelet Morphology Comment Appears Adequate; Polychromasia SLIGHT = 2-3 cells (100X) (0-2/hpf); RBC Distribution Width 12.7 % (11.5-14.5); Reactive Lymphocytes 7 % (0-10); Red Blood Cell (RBC) Count 3.59 mill/uL (4.20-5.40); Tear Drops SLIGHT = 2-5 cells (100X) (0-1/hpf); White Blood Cell (WBC) Count 10.8 thou/uL (4.8-10.8)
[2019-03-30 14:14] LABS: Hep C IgG Ab Non-Reactive (NonReactive); Hep C Index 0.03 S/CO (0-0.79); Syphilis Antibody Nonreactive (Nonreactive); Syphilis Antibody Index 0.12 S/CO (<1.00 Non-Reactive)
[2019-03-30 14:20] LABS: Vitamin B12 371 pg/mL (211-911)
--- NOTE | 2019-03-30 14:35 | PQF ---
KAROL FUNGValencia [id number] [id number] CLINICAL DOCUMENTATION IMPROVEMENT CLARIFICATION FORM: ICD-10 Updated PLEASE DO AN ADDENDUM TO THE PROGRESS NOTE WITH ANY DOCUMENTATION UPDATES OR ADDITIONS AND CARRY THROUGH TO DC SUMMARY. THANK YOU. DATE: 03/30/19 ATTN: Dr. Monson Please exercise your independent, professional judgment in responding to the clarification form. Clinical indicators are provided on the bottom of this form for your review Please check appropriate box(s): [ x ] Weakness Etiology: [ x ] Traumatic Rhabdomyolysis (due to fall) [ ] Rhabdomyolysis [ ] Functional Quadriplegia (specify underlying cause) [ ] Weakness due to [ ] Other diagnosis [ ] Unable to determine In addition, please specify: Present on Admission (POA): [x ] Yes [ ] No [ ] Unable to determine CLINICAL INDICATORS - SIGNS / SYMPTOMS / LABS/ RESULTS AND LOCATION IN MR Weakness loss of function -->03/30 Ermias: "physical deconditioning." 03/28 Monson: "Unable to raise arms. 2/6 strength BUE and BLE. Unable to bend knee. Reported by family they had to help her eat breakfast as she would not feed herself." 03/27 CK 711; 03/28 CK 1259--CK 994; 03/29 CK 842 per lab RISK FACTORS / RESULTS AND LOCATION IN MR 03/27 H&P([place]): "found down at home. sustained a fall sometime around 8am this morning; found by family 12 hours later" 03/30 Ermias: "Rhabdomyolysis, improved" TREATMENT / RESULTS AND LOCATION IN MR Assisted feedings--reported per family in 03/28 Dr. Monson note PT/OT orders 03/27 IV fluids--> 03/27 1 liter to NS bolus LR at 100 03/27 to date per orders Trend CK 03/27-03/29 orders (This form is maintained as a part of the permanent medical record) 2014 [employer]. All Rights Reserved Payal Turner RN, BSN, CCDS [email or web address] [phone] JIM
--- NOTE | 2019-03-30 14:53 | PQF ---
KAROL FUNGValenciar [id number] CLINICAL DOCUMENTATION IMPROVEMENT CLARIFICATION FORM: ICD-10 Updated PLEASE DO AN ADDENDUM TO THE PROGRESS NOTE WITH ANY DOCUMENTATION UPDATES OR ADDITIONS AND CARRY THROUGH TO DC SUMMARY. THANK YOU. DATE: 03/30/19 ATTN: Dr. Monson Please exercise your independent, professional judgment in responding to the clarification form. Clinical indicators are provided on the bottom of this form for your review Please check appropriate box(s): [ x ] Encephalopathy: Type: [ x ] Acute [ ] Subacute [ ] Chronic Etiology: [ ] Metabolic [ ] Unspecified [ x ] in the setting of underlying dementia [ ] Other (please specify) [ ] Transient Alteration of Awareness [ ] Other diagnosis [ ] Unable to determine In addition, please specify: Present on Admission (POA): [ x ] Yes [ ] No [ ] Unable to determine For continuity of documentation, please document condition throughout progress notes and discharge summary. Thank You. CLINICAL INDICATORS - SIGNS / SYMPTOMS / LABS / RESULTS AND LOCATION IN EMR 03/29 (Ermias): "Encephalopathy likely 2/2 to infection" 03/27 bun 37, creat 2.30 to 03/30 bun 31, creat 2.22, GFR 21 per lab UA WBC 7-10, TRACE LEUK EST per 03/27 lab RISK FACTORS / RESULTS AND LOCATION IN EMR 03/27 H&P(Croft): "HUEY on CKD" 03/29 Monson: "CKD 4" Infectious process--> "Urinary tract infecton" per 03/27 H&P(Croft) TREATMENTS / RESULTS AND LOCATION IN EMR IV antibiotics--> Rocephin 1gm IV daily 03/28 to date per orders IV fluids--> 03/27 1 liter NS bolus; 03/27 to date LR at 100 per orders 03/30 Monson: "Encouraged re-orientation" (This form is maintained as a part of the permanent medical record) 2014 [employer]. All Rights Reserved Payal Turner, RN, BSN, CCDS [email or web address]
[2019-03-30] MEDS: Atorvastatin Calcium 40 MG TAB PO SCH (21:20)
[2019-03-30] MEDS: PARoxetine 20 MG TAB PO SCH (21:20)
[2019-03-30] MEDS: NIFEdipine XL 30 MG TAB PO SCH (21:21)
[2019-03-30] MEDS: Insulin Glargine 12 UNITS in Pre-Filled Syringe 1 EACH SC SCH (21:22)
[2019-03-30] MEDS ORDERED: Ibuprofen 600 MG TAB PO PRN (23:29)
[2019-03-31] MEDS: hydrALAZINE 20 MG/ML VIAL SLOW IVP PRN ×3 (00:09→23:58)
[2019-03-31] MEDS: Cepastat Lozenges 1 LOZ PO PRN (00:12)
[2019-03-31] MEDS ORDERED: hydrALAZINE 20 MG/ML VIAL SLOW IVP SCH (02:45)
[2019-03-31] MEDS ORDERED: Ibuprofen 600 MG TAB PO PRN (03:43)
[2019-03-31] MEDS: Cephalexin 250 MG CAP PO SCH ×3 (05:35→20:36)
[2019-03-31 06:10] LABS: Anion Gap 9 mmol/L (10-20); BUN (Urea Nitrogen) 28 mg/dL (9.8-20.1); Calc. Creatinine Clearance 20 mL/min (70-130); Calcium 7.7 mg/dL (7.8-10.44); Carbon Dioxide 23 mmol/L (23-31); Chloride 109 mmol/L (98-107); Estimated GFR-MDRD 24; Glucose 119 mg/dL (83-110); Potassium 3.4 mmol/L (3.5-5.1); Sodium 138 mmol/L (136-145)
--- NOTE | 2019-03-31 06:54 | PDOC.FM ---
- Subjective Subjective: Pt very weak this morning still. Son states she was unable to lift arms to work with PT. She usually lives alone at home. placement pending for [facility]. Denies CP. sys BP elevated 180's-200. diastolic pressures low. - Objective MAR Reviewed: Yes Vital Signs & Weight: Vital Signs (12 hours) Temp Pulse Resp BP BP Pulse Ox 03/31/19 03:48 98.4 F 64 20 188/64 H 99 03/31/19 02:49 60 198/62 H 03/31/19 02:00 98.1 F 60 14 198/62 H 96 03/31/19 00:09 62 197/65 H 03/31/19 00:00 98.3 F 62 16 197/65 H 96 03/30/19 21:21 66 160/66 H 94 L 03/30/19 20:00 98.2 F 66 18 160/66 H 94 L Weight Admit Weight 58.2 kg Weight 58.2 kg I&O: 03/29/19 03/30/19 03/31/19 06:59 06:59 06:59 Intake Total 3420 3460 800 Output Total 450 Balance 2970 3460 800 Result Diagrams: 03/30/19 13:22 03/31/19 05:20 Phys Exam - Physical Examination Constitutional: NAD HEENT: moist MMs Neck: no nodes, supple Respiratory: no wheezing, no rales, no rhonchi, clear to auscultation bilateral Cardiovascular: RRR, no rub 3/6 sys murmur loudest over aotric valve. Gastrointestinal: soft, non-tender, no distention, positive bowel sounds Musculoskeletal: no edema, pulses present weak in all extremities, 3/5 strength. Skin: no rash, normal turgor, cap refill <2 seconds Dx/Plan (1) UTI (urinary tract infection) Status: Acute (2) Acute worsening of stage 3 chronic kidney disease Code(s): N18.3 - CHRONIC KIDNEY DISEASE, STAGE 3 (MODERATE) Status: Acute (3) Hypokalemia Code(s): E87.6 - HYPOKALEMIA Status: Acute (4) Coronary artery disease Code(s): I25.10 - ATHSCL HEART DISEASE OF [place] CORONARY ARTERY W/O ANG PCTRS Status: Chronic Qualifiers: Coronary Disease-Associated Artery/Lesion type: bypass graft [place] vs. transplanted heart: [place] heart Associated angina: without angina Qualified Code(s): I25.810 - Atherosclerosis of coronary artery bypass graft(s) without angina pectoris (5) DM2 (diabetes mellitus, type 2) Status: Chronic Qualifiers: Diabetes mellitus long-term insulin use: without terminal worker use Diabetes mellitus complication status: with hyperglycemia Qualified Code(s): E11.65 - Type 2 diabetes mellitus with hyperglycemia (6) Hypertension Code(s): I10 - ESSENTIAL (PRIMARY) HYPERTENSION Status: Chronic Qualifiers: Hypertension type: essential hypertension Qualified Code(s): I10 - Essential (primary) hypertension - Plan Plan: E coli UTI - Culture resulted e coli, sensitivities resulted - Rocephin (03/27), transitioned to Po kefflex 03/30. - WBC downtrending, afebrile Encephalopathy - likely 2/2 infection initially. Electrolytes normal. Likely has some baseline dementia. Encouraged reorientation. Unsure about patient effort. It is interesting how at times she will be disoriented, blabbering things then immediately afterward will have full conversation demonstrating high level cognition. - CT brain 03/28 was again negative and neuro exam inconsistent. Do not suspect stroke Physical deconditioning S/P mechanical fall - Complete imaging negative for acute fracture or intracranial bleed. - PT/OT/rehab consults ordered - Discharge planning SNF for deconditioning / increased risk of fall. [facility]. - Neuro consult pending for profound weakness. HUEY on CKD, nearly at baseline - Cr. 1.9 trendign down. - Gentle IV fluid rehydration, will decrease pending Cr improvement Rhabdomyolysis, improved - 711->1200, now downtrended Elevated troponin, downtrended - Initial 0.054, downtrended. Likely 2/2 demand. Asymptomatic. Hypertension - BP in the 200s / 100s in the ED. now 180-200/60's. - Continue home medications. BP in 160s with wide pulse pressure, will not change regimen at this time - Hydralazine prn for elevated BP. Will monitor. Leukocytosis, improving - 2/2 UTI Hypokalemia - replace when low. VTE: SCDs. No pharmaco d/t fall risk Code: Full PCP: Isaiah CORRALES Disposition/LOS: From an infectious standpoint, appears to be improving with labs nearly back to baseline. Replaced K+. Continues to have profound weakness. Exam not consistent with particular etiology and repeat CT brain negative. PT/ OT to work with patient. SNF upon D/C. Neuro consult pending. Addendum - Attending - Attending Attestation Date/Time: 03/31/19 9047 I personally evaluated the patient and discussed the management with Dr. Silva. I agree with the History, Examination, Assessment and Plan documented above with any addition or exceptions noted below. Patient here with encephalopathy and diffuse weakness 2/2 UTI. She has had thorough neuro workup to rule out other serious causes of her bilateral and fluctuating weakness. Continue therapy and await SNF placement. BP elevated likely 2/2 arterial calcifications, checking with manual cuff and will make BP med changes as needed.
[2019-03-31] MEDS: Aspirin 325 mg Enteric Coated Tablet PO SCH (08:27)
[2019-03-31] MEDS: Losartan 25 MG TAB PO SCH (08:27)
[2019-03-31] MEDS ORDERED: Potassium Chloride 20 MEQ TAB PO SCH (09:45)
[2019-03-31] MEDS: Insulin Glargine 12 UNITS in Pre-Filled Syringe 1 EACH SC SCH (20:36)
[2019-03-31] MEDS: PARoxetine 20 MG TAB PO SCH (20:36)
[2019-03-31] MEDS: Atorvastatin Calcium 40 MG TAB PO SCH (20:36)
[2019-03-31] MEDS: NIFEdipine XL 30 MG TAB PO SCH (20:36)
[2019-04-01] MEDS: Acetaminophen 500 MG TAB PO PRN (04:22)
[2019-04-01] MEDS: Cephalexin 250 MG CAP PO SCH (04:22)
[2019-04-01 06:30] LABS: Anion Gap 10 mmol/L (10-20); BUN (Urea Nitrogen) 26 mg/dL (9.8-20.1); Calc. Creatinine Clearance 20 mL/min (70-130); Calcium 7.6 mg/dL (7.8-10.44); Carbon Dioxide 22 mmol/L (23-31); Chloride 106 mmol/L (98-107); Estimated GFR-MDRD 25; Glucose 138 mg/dL (83-110); Potassium 3.8 mmol/L (3.5-5.1); Sodium 134 mmol/L (136-145)
--- NOTE | 2019-04-01 06:30 | PDOC.FM ---
- Subjective Subjective: Pt c/o BLE pain, crampy in character. [facility] accepted. - Objective MAR Reviewed: Yes Vital Signs & Weight: Vital Signs (12 hours) Temp Pulse Resp BP BP Pulse Ox 04/01/19 04:00 97.6 F 63 15 178/63 H 100 03/31/19 23:58 64 03/31/19 23:56 98.2 F 64 16 174/66 H 97 03/31/19 20:36 61 172/64 H 03/31/19 20:00 95 03/31/19 19:47 98.2 F 61 16 172/64 H 100 Weight Admit Weight 58.2 kg Weight 58.2 kg I&O: 03/30/19 03/31/19 04/01/19 06:59 06:59 06:59 Intake Total 3460 800 720 Balance 3460 800 720 Result Diagrams: 03/30/19 13:22 04/01/19 05:58 Phys Exam - Physical Examination Constitutional: NAD HEENT: moist MMs, sclera anicteric Neck: no nodes, supple, full ROM Respiratory: no wheezing, no rales, no rhonchi, clear to auscultation bilateral Cardiovascular: RRR, no rub 3/6 sys murmur loudest over aortic valve Gastrointestinal: soft, non-tender, no distention, positive bowel sounds Musculoskeletal: no edema, pulses present does not demonstarte strength in upper extremites. Moves BLE freely. Psychiatric: A&O x 3 Skin: no rash, normal turgor, cap refill <2 seconds Dx/Plan (1) UTI (urinary tract infection) Status: Acute (2) Acute worsening of stage 3 chronic kidney disease Code(s): N18.3 - CHRONIC KIDNEY DISEASE, STAGE 3 (MODERATE) Status: Acute (3) Hypokalemia Code(s): E87.6 - HYPOKALEMIA Status: Acute (4) Coronary artery disease Code(s): I25.10 - ATHSCL HEART DISEASE OF [place] CORONARY ARTERY W/O ANG PCTRS Status: Chronic Qualifiers: Coronary Disease-Associated Artery/Lesion type: bypass graft [place] vs. transplanted heart: [place] heart Associated angina: without angina Qualified Code(s): I25.810 - Atherosclerosis of coronary artery bypass graft(s) without angina pectoris (5) DM2 (diabetes mellitus, type 2) Status: Chronic Qualifiers: Diabetes mellitus penitentiary insulin use: without terminologist use Diabetes mellitus complication status: with hyperglycemia Qualified Code(s): E11.65 - Type 2 diabetes mellitus with hyperglycemia (6) Hypertension Code(s): I10 - ESSENTIAL (PRIMARY) HYPERTENSION Status: Chronic Qualifiers: Hypertension type: essential hypertension Qualified Code(s): I10 - Essential (primary) hypertension - Plan Plan: E coli UTI - Culture resulted e coli, sensitivities resulted - Rocephin (03/27), transitioned to Po kefflex 03/30. - WBC downtrending, afebrile Encephalopathy - likely 2/2 infection initially. Electrolytes normal. Likely has some baseline dementia. Encouraged reorientation. Unsure about patient effort. It is interesting how at times she will be disoriented, blabbering things then immediately afterward will have full conversation demonstrating high level cognition. - CT brain 03/28 was again negative and neuro exam inconsistent. Do not suspect stroke - neurology consulted 03/30, for weakness. Physical deconditioning S/P mechanical fall - Complete imaging negative for acute fracture or intracranial bleed. - PT/OT/rehab consults ordered - Discharge planning SNF for deconditioning / increased risk of fall. [facility]. - Neuro consult pending for profound weakness. HUEY on CKD, nearly at baseline - Cr. 1.9 trending down. - Gentle IV fluid rehydration, will decrease pending Cr improvement Rhabdomyolysis, improved - 711->1200, now downtrended Elevated troponin, downtrended - Initial 0.054, downtrended. Likely 2/2 demand. Asymptomatic. Hypertension - BP in the 200s / 100s in the ED. now 180-200/60's. - Continue home medications. BP in 160s with wide pulse pressure, will not change regimen at this time - Hydralazine prn for elevated BP. Will monitor. - BP in normal range when taken manually. Possibly high with mechanical BP monitor due to atherosclerotic disease skewing reading. Recommending only manual reading for accuracy. Leukocytosis, improved - 2/2 UTI Hypokalemia - replace when low. VTE: SCDs. No pharmaco d/t fall risk Code: Full PCP: Isaiah CORRALES Disposition/LOS: From an infectious standpoint, appears to be improving with labs nearly back to baseline. Replaced K+. Continues to have profound weakness. Exam not consistent with particular etiology and repeat CT brain negative. PT/ OT to work with patient. [facility], [facility] upon D/C. Addendum - Attending - Attending Attestation Date/Time: 04/01/19 1566 I personally evaluated the patient and discussed the management with Dr. Silva. I agree with the History, Examination, Assessment and Plan documented above with any addition or exceptions noted below. Patient stable. Accepted for [facility] with continued antibiotic therapy. Will be discharged today.
[2019-04-01] MEDS: Losartan 25 MG TAB PO SCH (08:28)
[2019-04-01] MEDS: Aspirin 325 mg Enteric Coated Tablet PO SCH (08:28)
[2019-04-01 11:20] VITALS: BP 130/55
[2019-04-01 11:37] VITALS: TEMP 98
--- NOTE | 2019-04-02 21:03 | PQF ---
KAROL FUNG JASON MD [id number] CLINICAL DOCUMENTATION CLARIFICATION FORM: POST DISCHARGE Addendum to original discharge summary date: ____ Late entry note date: __ DATE: 04/02/19 ATTN: Herve Escobar Please exercise your independent, professional judgment in responding to the clarification form. Clinical indicators are provided on the bottom of this form for your review Please check appropriate box(es): [ ] Sepsis due to UTI [ ] Severe sepsis with acute organ dysfunction of: (Examples: respiratory failure, encephalopathy, acute kidney failure, other) [ ] Septic Shock [ X ] Localized infection without sepsis [ ] Other diagnosis [ ] Unable to determine In addition, please specify: Present on Admission (POA): [X ] Yes [ ] No [ ] Unable to determine For continuity of documentation, please document condition throughout progress notes and discharge summary. Thank You. CLINICAL INDICATORS - SIGNS / SYMPTOMS / LABS ED note p1 03/27 [place] dizziness around 0800 fell down and was unable to get up to call for help Vital Sign 03/28: BP144/58, Resp 25, Pulse 71 Laboratory Hematology 03/27 WBC 16.8 Family H&P p5 03/27 Urinary tract infection 4+ bacteria, 7-10wbc, blood and leukocyte esterase + Family H&P p5 03/27 Leukocytosis UTI vs inflammatory process 2/2 fall RISK FACTORS Family H&P p5 03/27 Urinary tract infection Family H&P p5 03/27 HUEY on CKD TREATMENTS: JUL 14 IV Rocephin MAR 03/27 IV fluid rehydration Family H&P p5 03/27 - Repeat CBC (This form is maintained as a part of the permanent medical record) 2014 [employer]. All Rights Reserved [email or web address] [not provided] [email or web address]
== END 2019-04-01 13:13 | DRG 565 ==
LOC: ERS 20:19 → T4-B 22:51
PROVIDERS: ADMIT Student in an Organized Health Care Education/Training Program; ATTEND Student in an Organized Health Care Education/Training Program
DX: T79.6XXA Traumatic ischemia of muscle, initial encounter (principal); N39.0 Urinary tract infection, site not specified; N17.9 Acute kidney failure, unspecified; N18.4 Chronic kidney disease, stage 4 (severe); G93.49 Other encephalopathy; B96.20 Unspecified Escherichia coli [E. coli] as the cause of diseases classified elsewhere; I12.9 Hypertensive chronic kidney disease with stage 1 through stage 4 chronic kidney disease, or unspecified chronic kidney disease; E87.6 Hypokalemia; W18.30XA Fall on same level, unspecified, initial encounter; E11.22 Type 2 diabetes mellitus with diabetic chronic kidney disease; I25.10 Atherosclerotic heart disease of native coronary artery without angina pectoris; F03.90 Unspecified dementia, unspecified severity, without behavioral disturbance, psychotic disturbance, mood disturbance, and anxiety; Z79.899 Other long term (current) drug therapy; Z79.4 Long term (current) use of insulin; Z88.5 Allergy status to narcotic agent; Z88.2 Allergy status to sulfonamides; Z90.710 Acquired absence of both cervix and uterus; Z90.49 Acquired absence of other specified parts of digestive tract; Z86.73 Personal history of transient ischemic attack (TIA), and cerebral infarction without residual deficits
CPT/HCPCS: 36415; 36416; 70450; 71045; 72125; 72170; 80048; 80053; 81003; 81015; 82550; 82553; 82607; 82728; 84484; 85007; 85025; 85027; 85060; 85652; 86780; 86803; 87077; 87086; 87186; 87804; 93005; A4353; J0360; J0696; J1815; J2270; J3490; L0120